=== PATIENT | female | born 1975 | race African-American/Black ===

== ENCOUNTER 2020-05-24 06:20 | Inpatient (IN) | payer OTHER ==
[2020-05-19 13:10] LABS: HEMATOCRIT 33.8 % (36.0-47.0); HEMOGLOBIN 11.2 g/dL (12.0-15.5); MEAN CORPUSCULAR HEMOGLOBIN 29.9 pg (27.0-33.4); MEAN CORPUSCULAR HGB CONC 33.3 g/dL (32.0-36.0); MEAN CORPUSCULAR VOLUME 90 fl (80-97); PLATELET COUNT 254 10^3/uL (150-450); RED BLOOD COUNT 3.76 10^6/uL (3.72-5.28); RED CELL DISTRIBUTION WIDTH 14.6 % (11.5-14.0); WHITE BLOOD COUNT 8.1 10^3/uL (4.0-10.5)
[2020-05-19 13:42] LABS: ANION GAP 10 (5-19); BLOOD UREA NITROGEN 12 mg/dL (7-20); CALCIUM 8.1 mg/dL (8.4-10.2); CARBON DIOXIDE 24 mmol/L (22-30); CHLORIDE 107 mmol/L (98-107); GLUCOSE 83 mg/dL (75-110); POTASSIUM 4.1 mmol/L (3.6-5.0)
--- NOTE | 2020-05-19 18:24 | EKG REPORT ---
SEVERITY:- OTHERWISE NORMAL ECG - SINUS RHYTHM BORDERLINE LEFT AXIS DEVIATION : Confirmed by: Jimmie Gloria 19-May-2020 18:24:07
[~2020-05-24 06:20] MED LIST: ACETAMINOPHEN 325 MG TABLET PO PRN; CEFOXITIN SODIUM 2 GM in DEXTROSE 5%-WATER 100 ML IV PRN; IBUPROFEN 800 MG in NORMAL SALINE 250 ML IV PRN; LACTATED RINGERS 1000 ML IV PRN; LIDOCAINE 0.5% INJ-PF (5 MG/ML) 50 ML SDV SUBCUT PRN; PREGABALIN 50 MG CAPSULE PO PRN
[2020-05-24] MEDS ORDERED: ACETAMINOPHEN 325 MG TABLET ONE ×2 (08:04→08:05)
[2020-05-24] MEDS ORDERED: PROPOFOL INJ 200 MG/20 ML VIAL IV ONE (08:40)
[2020-05-24] MEDS ORDERED: MIDAZOLAM 2 MG/2 ML INJ ONE (08:40)
[2020-05-24] MEDS ORDERED: FENTANYL CITRATE INJ/PF 250 MCG/5 ML AMPULE ONE (08:40)
[2020-05-24] MEDS ORDERED: BUPIVACAINE HCL 0.25 % INJ/PF (2.5 MG/1 ML) 30 ML VIAL ONE (08:41)
[2020-05-24] MEDS ORDERED: KETAMINE HCL INJ 500 MG/10 ML VIAL ONE (08:48)
[2020-05-24] MEDS ORDERED: FENTANYL CITRATE INJ/PF 100 MCG/2 ML AMPUL IV PRN ×3 (09:27)
[2020-05-24] MEDS ORDERED: DIPHENHYDRAMINE HCL 50 MG/ML VIAL IV PRN (09:27)
[2020-05-24] MEDS ORDERED: PROMETHAZINE HCL INJ 25 MG/1 ML VIAL IV PRN (09:27)
[2020-05-24] MEDS ORDERED: MORPHINE SULFATE 10 MG/ML INJ IV PRN ×2 (09:27→11:20)
[2020-05-24] MEDS ORDERED: MEPERIDINE HCL/PF INJ 25 MG/1 ML DISP.SYRIN IV PRN (09:27)
[2020-05-24] MEDS ORDERED: NORMAL SALINE 1000 ML 1,000 ML IV PRN (11:20)
--- NOTE | 2020-05-24 11:37 | Operative Report ---
Nonrecallable Operative Report DATE OF SURGERY: 05/24/20 PREOPERATIVE DIAGNOSIS: Tumor, right colon/cecum (unable to be removed via endoscopic methods) POSTOPERATIVE DIAGNOSIS: Same as above OPERATION: Laparoscopic right hemicolectomy. SURGEON: FAINA PARNELL 1ST BASEBALL GLOVE STUFFER: GUNJAN FERREIRA ANESTHESIA: GA TISSUE REMOVED OR ALTERED: Right hemicolectomy COMPLICATIONS: None apparent ESTIMATED BLOOD LOSS: minimal PROCEDURE: Drains/implants: None. Procedure in detail: After informed consent was obtained, the patient was brought to the operating room and laid in the supine position. The area of the abdomen was prepped and draped in a normal sterile fashion. A supraumbilical incision was then created with a 15 blade scalpel. Dissection was carried down through the subcutaneous tissues using sharp and blunt dissection. The cicatrix was identified, grasped with a Vipin clamp, and retracted upwards. The linea alba fascia was incised sharply, and the abdomen entered sharply. The balloon trocar was inserted, and pneumoperitoneum was achieved. The suprapubic 5 mm trocar was then placed under direct laparoscopic visualization. Another 12 mm left lower quadrant trocar was placed in similar fashion. Atraumatic graspers were placed through the ports. The cecum was identified. The cecum and appendix were retracted anteriorly. The previously described mass lesion was found to be at the appendiceal orifice on colonoscopy. The cecum was retracted anteriorly. The veil of Treivs was taken down. The cecum was removed using the [place] 60 stapler with a blue load. The appendix and cecum were removed through the 12 mm supraumbilical port. The specimen was examined on the back table. There was a large amount of adenomatous tissue present, extending to the resection margin. At this time it was felt necessary to perform right hemicolectomy to ensure the entirety of the tumor was removed. The cecum was grasped and retracted anteriorly. The ileocolic artery was easily identified. It was dissected free and divided using the [place] 60 stapler with a white load. Next a medial to lateral approach was taken. The mesentery of the right colon was elevated anteriorly, and from the retroperitoneum. This was done up to the mid transverse colon superiorly, and to the white line of Toldt laterally. The small bowel was then divided using the [place] 60 stapler at the terminal ileum. Next, attention was turned to medialization of the colon. The greater omentum was freed from the transverse colon up to the midportion. The proximal transverse colon was rotated medially and freed from the lateral and superior attachments. Once the colon was completely mobilized, attention was turned to creation of an anastomosis. The supraumbilical incision was extended approximately 4 to 5 cm. The Sal wound retractor was placed on the patient. The right colon and small bowel were then exteriorized. The colon was divided at the level of the transverse colon. Next, a [id number] stapled anastomosis was created using the [place] 60 stapler. The resulting defect was closed again with the [place] 60 stapler and a blue load. 2 crotch stitches of 3-0 Vicryl were used to secure the anastomosis. The anastomosis was tested, and found to be free of any leakage. The anastomosis was then returned to the abdomen. The camera was reinserted. The anastomosis laid in good position, without any kinking or twisting. Once this was confirmed, the 12 mm trocar was removed. The defect was closed using 0 Vicryl suture in [id number] fashion with the Shubham-Peter device. Next, the 5 mm trochars were removed. The Sal wound retractor was removed. The supraumbilical fascia was closed using #1 single strand PDS suture in simple running fashion. The overlying skin was then closed using skin mike. Dressings were placed, and the procedure was concluded. All sponge, instrument, and needle counts were correct x2. Condition: Stable. Gunjan Ferreira PA-C was scrubbed and present the entirety of the procedure. She assisted with all portions of the procedure including placement of the trochars, mobilization of the colon, removal of the colon, creation of the anastomosis, closure of the fascia, and closure of the skin.
[2020-05-24] MEDS: FENTANYL CITRATE INJ/PF 100 MCG/2 ML AMPUL ONE ×2 (11:39→11:50)
[2020-05-24] MEDS ORDERED: ROCURONIUM BROMIDE INJ 50 MG/5 ML VIAL IV ONE (14:18)
[2020-05-24] MEDS ORDERED: GLYCOPYRROLATE 1 MG/5 ML VIAL ONE (14:18)
[2020-05-24] MEDS ORDERED: LIDOCAINE 2% INJ-PF (20 MG/ML) 2 ML AMPUL ONE (14:18)
[2020-05-24] MEDS ORDERED: NEOSTIGMINE METHYLSULFATE 10 MG/10 ML VIAL ONE (14:18)
[2020-05-24] MEDS ORDERED: ONDANSETRON HCL INJ/PF 4 MG/2 ML SDV ONE (14:18)
[2020-05-24] MEDS: KETOROLAC TROMETHAMINE INJ/PF 30 MG/1 ML SDV IV SCH ×2 (15:44→23:16)
[2020-05-24] MEDS: ONDANSETRON HCL INJ/PF 4 MG/2 ML SDV IV PRN (16:00)
[2020-05-24] MEDS ORDERED: CEFOXITIN SODIUM 2 GM in DEXTROSE 5%-WATER 100 ML IV SCH (17:30)
[2020-05-24] MEDS: CEFOXITIN SODIUM 2 GM in DEXTROSE 5%-WATER 100 ML IV SCH (19:20)
[2020-05-24] MEDS: FAMOTIDINE INJ/PF 20 MG/2 ML SDV IV SCH (23:17)
[2020-05-25] MEDS: CEFOXITIN SODIUM 2 GM in DEXTROSE 5%-WATER 100 ML IV SCH (02:06)
[2020-05-25 05:58] LABS: ABSOLUTE EOSINOPHILS # (AUTO) 0.1 10^3/uL (0.0-0.6); ABSOLUTE LYMPHOCYTES (AUTO) 1.7 10^3/uL (0.5-4.7); ABSOLUTE MONOCYTES (AUTO) 0.4 10^3/uL (0.1-1.4); ABSOLUTE NEUT (AUTO) 8.2 10^3/uL (1.7-8.2); BASOPHILS % (AUTO) 0.3 % (0-2); EOSINOPHILS % (AUTO) 0.9 % (0-6); HEMATOCRIT 31.9 % (36.0-47.0); HEMOGLOBIN 10.8 g/dL (12.0-15.5); MEAN CORPUSCULAR HEMOGLOBIN 30.2 pg (27.0-33.4); MEAN CORPUSCULAR HGB CONC 33.7 g/dL (32.0-36.0); MEAN CORPUSCULAR VOLUME 90 fl (80-97); MONOCYTES % (AUTO) 4.2 % (3-13); PLATELET COUNT 297 10^3/uL (150-450); RED BLOOD COUNT 3.57 10^6/uL (3.72-5.28); RED CELL DISTRIBUTION WIDTH 14.8 % (11.5-14.0); SEGMENTED NEUTROPHILS % (AUTO) 78.6 % (42-78); TOTAL CELLS COUNTED % (AUTO) 100 %; WHITE BLOOD COUNT 10.5 10^3/uL (4.0-10.5)
[2020-05-25 06:22] LABS: ANION GAP 5 (5-19); BLOOD UREA NITROGEN 6 mg/dL (7-20); CALCIUM 8.2 mg/dL (8.4-10.2); CARBON DIOXIDE 25 mmol/L (22-30); CHLORIDE 111 mmol/L (98-107); GLUCOSE 97 mg/dL (75-110)
[2020-05-25] MEDS: KETOROLAC TROMETHAMINE INJ/PF 30 MG/1 ML SDV IV SCH ×3 (06:29→22:19)
[2020-05-25] MEDS: FAMOTIDINE INJ/PF 20 MG/2 ML SDV IV SCH ×2 (10:56→22:19)
[2020-05-25] MEDS: ENOXAPARIN SODIUM INJ 40 MG/0.4 ML DISP.SYRIN SUBCUT SCH (10:56)
--- NOTE | 2020-05-25 15:03 | PDOC PROGRESS REPORT ---
Subjective Progress Note for:: 05/25/20 Reason For Visit: D12.1 BENIGN NEOPLASM OF APPENDIX Physical Exam Vital Signs: Temp Pulse Resp BP Pulse Ox 98.0 F 89 16 96/56 L 100 05/25/20 11:51 05/25/20 11:51 05/25/20 11:51 05/25/20 11:51 05/25/20 11:51 Intake & Output 05/24/20 05/25/20 05/26/20 06:59 06:59 06:59 Intake Total 2258 388 Output Total 1775 875 Balance 483 -487 Weight 86.5 kg Results Laboratory Results: 05/25/20 05:05 05/25/20 05:05 05/25/20 05/25/20 05:05 05:05 WBC 10.5 RBC 3.57 L Hgb 10.8 L Hct 31.9 L MCV 90 MCH 30.2 MCHC 33.7 RDW 14.8 H Plt Count 297 Seg Neutrophils % 78.6 H Sodium 141.0 Potassium 4.0 Chloride 111 H Carbon Dioxide 25 Anion Gap 5 BUN 6 L Creatinine 0.81 Est GFR ( Amer) > 60 Glucose 97 Calcium 8.2 L Assessment & Plan - Diagnosis (1) Polyp of ascending colon Qualifiers: Colon polyp type: unspecified Qualified Code(s): K63.5 - Polyp of colon Is this a current diagnosis for this admission?: Yes - Time Anticipated Discharge Disposition: Home, Self Care Anticipated Discharge Timeframe: within 72 hours - Plan Summary Plan Summary: 44-year-old female status post laparoscopic right hemicolectomy for a large a sending colon polyp, that was unable to be removed via endoscopic methods. She is currently postoperative day #1. She is doing well today. She denies nausea or vomiting. She has not yet passing any flatus. Awaiting bowel function. Out of bed, ambulate. Discontinue Molina catheter. Decrease IV fluids.
[2020-05-25] MEDS: HYDROCODONE/ACETAMINOPHEN 10-325 MG TABLET PO PRN (22:19)
[2020-05-25] MEDS: NORMAL SALINE 1000 ML 1,000 ML IV PRN (23:53)
[2020-05-26] MEDS: HYDROCODONE/ACETAMINOPHEN 10-325 MG TABLET PO PRN ×2 (02:57→17:58)
[2020-05-26] MEDS: ONDANSETRON HCL INJ/PF 4 MG/2 ML SDV IV PRN ×3 (03:03→19:33)
[2020-05-26] MEDS: KETOROLAC TROMETHAMINE INJ/PF 30 MG/1 ML SDV IV SCH ×3 (05:40→21:23)
[2020-05-26] MEDS: FAMOTIDINE INJ/PF 20 MG/2 ML SDV IV SCH ×2 (09:28→21:23)
[2020-05-26] MEDS: ENOXAPARIN SODIUM INJ 40 MG/0.4 ML DISP.SYRIN SUBCUT SCH (09:28)
--- NOTE | 2020-05-26 12:21 | PDOC PROGRESS REPORT ---
Subjective Progress Note for:: 05/26/20 Subjective:: feels ok, passing flatus, jessica full liquids Reason For Visit: D12.1 BENIGN NEOPLASM OF APPENDIX Physical Exam Vital Signs: Temp Pulse Resp BP Pulse Ox 98.1 F 87 12 114/72 95 05/26/20 11:22 05/26/20 11:22 05/26/20 11:22 05/26/20 11:22 05/26/20 11:22 Intake & Output 05/25/20 05/26/20 05/27/20 06:59 06:59 06:59 Intake Total 2258 1516 Output Total 1775 2225 Balance 483 -709 Weight 86.5 kg 86.5 kg General appearance: PRESENT: no acute distress Head exam: PRESENT: normocephalic Eye exam: PRESENT: EOMI Ear exam: PRESENT: normal external ear exam Mouth exam: PRESENT: moist Neck exam: PRESENT: full ROM Respiratory exam: PRESENT: clear to auscultation brent Cardiovascular exam: PRESENT: RRR Pulses: PRESENT: normal radial pulses, normal femoral pulses Breast: PRESENT: Normal GI/Abdominal exam: PRESENT: soft, other - incisions clean, dry Rectal exam: PRESENT: deferred Extremities exam: PRESENT: full ROM Musculoskeletal exam: PRESENT: full ROM Neurological exam: PRESENT: alert, awake, oriented to person, oriented to place Psychiatric exam: PRESENT: appropriate affect Skin exam: PRESENT: dry Results Laboratory Results: 05/25/20 05:05 05/25/20 05:05 Assessment & Plan - Time Anticipated Discharge Disposition: Home, Self Care Anticipated Discharge Timeframe: within 24 hours - Plan Summary Plan Summary: pt doing well pod 2 from lap rt hemicolectomy jessica full liqluids will advance to reg diet today prob home tomorrowl
[2020-05-26] MEDS: NORMAL SALINE 1000 ML 1,000 ML IV PRN (19:33)
[2020-05-27] MEDS: HYDROCODONE/ACETAMINOPHEN 10-325 MG TABLET PO PRN ×3 (01:24→09:44)
[2020-05-27] MEDS: KETOROLAC TROMETHAMINE INJ/PF 30 MG/1 ML SDV IV SCH ×2 (05:35→13:22)
[2020-05-27] MEDS: ENOXAPARIN SODIUM INJ 40 MG/0.4 ML DISP.SYRIN SUBCUT SCH (09:44)
[2020-05-27] MEDS: FAMOTIDINE INJ/PF 20 MG/2 ML SDV IV SCH ×2 (09:44→09:47)
--- NOTE | 2020-05-27 15:50 | PDOC DISCHARGE SUMMARY ---
General - Admit/Disc Date/PCP Admission Date/Primary Care Provider: 05/24/20 06:20 HU ALVARES MD Discharge Date: 05/27/20 - Discharge Diagnosis Final Diagnosis: Polyp of the ascending colon, not amenable to endoscopic removal. - Assessment Summary: 4-year-old female admitted to hospital for large tumor of the cecum. The patient was found to have a large mass, and it was not amenable to endoscopic removal. She was therefore scheduled for surgery. The patient underwent laparoscopic right hemicolectomy. She was taken to the floor in stable condition. She is continue to do what she is reportedly tolerating a regular diet, passing flatus, ambulating in the hallways, and her pain is controlled with oral pain medications. It is felt that at this time she has reached [facility], and is fit for discharge. - Additional Information Resuscitation Status: Full Code Discharge Diet: As Tolerated Discharge Activity: Balance Activity w/Rest, No Lifting Over 10 Pounds, No Lifting/Push/Pulling Referrals: HU ALVARES MD [Primary Care Provider] - Prescriptions: Hydrocodone/Acetaminophen [[place] 10-325 mg Tablet] 1 tab PO Q6HP PRN #20 tablet PRN Reason: Home Medications: Amitriptyline HCl [Elavil 75 mg Tablet] 75 mg PO DAILY 05/19/20 Gabapentin 300 mg PO DAILY 05/19/20 Trazodone HCl 150 mg PO QHS 05/19/20 Hydrocodone/Acetaminophen [[place] 10-325 mg Tablet] 1 tab PO Q6HP PRN #20 tablet 05/27/20 Additional Information: Discharge home. Diet as tolerated. Activity: No lifting greater than 10 pounds x 6 weeks after surgery. Follow-up with me in 7 to 10 days. [place] 10/325 mg p.o. every 6 hours PRN for pain. Okay to shower. No tub baths or swimming pools x2 weeks. History of Present Illiness History of Present Illness: HECTOR BAXTER is a 44 year old female Physical Exam Vital Signs: Temp Pulse Resp BP Pulse Ox 98.2 F 102 H 26 H 107/61 99 05/27/20 08:33 05/27/20 08:11 05/27/20 08:11 05/27/20 08:11 05/27/20 08:11 Intake & Output 05/26/20 05/27/2020 06:59 06:59 06:59 Intake Total 3412 8103 Output Total 2220 500 Balance -709 1043 Weight 86.5 kg 86.4 kg Results Laboratory Results: WBC 10.5 10^3/uL (4.0-10.5) 05/25/20 05:05 RBC 3.57 10^6/uL (3.72-5.28) L 05/25/20 05:05 Hgb 10.8 g/dL (12.0-15.5) L 05/25/20 05:05 Hct 31.9 % (36.0-47.0) L 05/25/20 05:05 MCV 90 fl (80-97) 05/25/20 05:05 MCH 30.2 pg (27.0-33.4) 05/25/20 05:05 MCHC 33.7 g/dL (32.0-36.0) 05/25/20 05:05 RDW 14.8 % (11.5-14.0) H 05/25/20 05:05 Plt Count 297 10^3/uL (150-450) 05/25/20 05:05 Lymph % (Auto) 16.0 % (13-45) 05/25/20 05:05 [place] % (Auto) 4.2 % (3-13) 05/25/20 05:05 Eos % (Auto) 0.9 % (0-6) 05/25/20 05:05 Baso % (Auto) 0.3 % (0-2) 05/25/20 05:05 Absolute Neuts (auto) 8.2 10^3/uL (1.7-8.2) 05/25/20 05:05 Absolute Lymphs (auto) 1.7 10^3/uL (0.5-4.7) 05/25/20 05:05 Absolute Monos (auto) 0.4 10^3/uL (0.1-1.4) 05/25/20 05:05 Absolute Eos (auto) 0.1 10^3/uL (0.0-0.6) 05/25/20 05:05 Absolute Basos (auto) 0.0 10^3/uL (0.0-0.2) 05/25/20 05:05 Seg Neutrophils % 78.6 % (42-78) H 05/25/20 05:05 Sodium 141.0 mmol/L (137-145) 05/25/20 05:05 Potassium 4.0 mmol/L (3.6-5.0) 05/25/20 05:05 Chloride 111 mmol/L (98-107) H 05/25/20 05:05 Carbon Dioxide 25 mmol/L (22-30) 05/25/20 05:05 Anion Gap 5 (5-19) 05/25/20 05:05 BUN 6 mg/dL (7-20) L 05/25/20 05:05 Creatinine 0.81 mg/dL (0.52-1.25) 05/25/20 05:05 Est GFR ( Amer) > 60 (>60) 05/25/20 05:05 Est GFR (MDRD) Non-Af > 60 (>60) 05/25/20 05:05 Glucose 97 mg/dL (75-110) 05/25/20 05:05 Calcium 8.2 mg/dL (8.4-10.2) L 05/25/20 05:05 Urine HCG, Qual NEGATIVE (NEGATIVE) 05/24/20 07:13 COVID-19 Source See comment 05/19/20 11:30 COVID-19 (MELINA) Not Detected (Not Detect) 05/19/20 11:30 Blood Type O NEGATIVE 05/24/20 07:17 Antibody Screen NEGATIVE 05/24/20 07:17
[2020-05-27 16:03] VITALS: BP 114/72
--- NOTE | 2020-06-01 20:49 | Progress Note ---
Provider Note Provider Note: Response to query: The patient has been diagnosed with moderately differentiated adenocarcinoma of the colon with the pathology. This was not identified prior to surgery. Previous colonic biopsy showed an adenomatous lesion. Adenocarcinoma will was only recognized after surgery, and the pathology report was made final. This occurred after the patient's discharge.
== END 2020-05-27 17:08 | disposition home or self-care (01) | DRG 331 ==
LOC: INOR 06:20 → 4S 12:41
PROVIDERS: ADMIT Surgery; ATTEND Surgery
PROC: 0DTF4ZZ Resection of Right Large Intestine, Percutaneous Endoscopic Approach (ICD-10-PCS; principal; 2020-05-24 08:45)
DX: C18.0 Malignant neoplasm of cecum (principal); F32.9 Major depressive disorder, single episode, unspecified; G47.00 Insomnia, unspecified; F43.10 Post-traumatic stress disorder, unspecified; Z82.49 Family history of ischemic heart disease and other diseases of the circulatory system; Z79.899 Other long term (current) drug therapy
CPT/HCPCS: 36415; 790; 80048; 81025; 85025; 85027; 86850; 86900; 86901; 87635; 88307; 93005; 93010; 94799; C1758; C9803; J0694; J1650; J1741; J1885; J2250; J2405; J2704; J2710; J3010; J3490; J7030; J7050; J7060; S0028

== ENCOUNTER 2020-06-03 20:29 | Inpatient (IN) | payer OTHER ==
--- NOTE | 2020-06-03 21:02 | ER Document Report ---
ED Medical Screen (RME) - General Chief Complaint: Chest Pain Stated Complaint: CHEST PAIN Time Seen by Provider: 06/03/20 20:52 Primary Care Provider: HU ALVARES MD [Primary Care Provider] - Follow up as needed Mode of Arrival: Wheelchair Information source: Patient Notes: 44-year-old female presents to ED for complaint of vomiting from 6 PM to 8 PM tonight. She states she cannot hold any food or fluids down. She states on May 24 she had a surgery at this hospital. She states she was discharged on May 28. She states she had a mass on her colon and had her small intestines and attached to her large intestines. She states her appendix was removed. She states that this afternoon and evening she has had trouble breathing and nausea vomiting feels like all of her food is balled up in her stomach. She states it feels like she needs to burp or throw up every time she eats or drinks. She is alert oriented respirations regular nonlabored at this time. Lungs clear to auscultation. I have greeted and performed a rapid initial assessment of this patient. A comprehensive ED assessment and evaluation of the patient, analysis of test results and completion of medical decision making process will be conducted by an additional ED providers. - Related Data Allergies/Adverse Reactions: No Known Allergies Allergy (Unverified 05/24/20 08:16) Past Medical History Renal/ Medical History: Reports: Hx Ovarian Cysts. Denies: Hx Pelvic Inflammatory Disease Malignancy Medical History: Reports: Hx Ovarian Cancer - ?. Denies: Hx Breast Cancer, Hx Cervical Cancer, Hx Leukemia GI Medical History: Reports: Hx Gastroesophageal Reflux Disease. Denies: Hx Crohn's Disease, Hx Hiatal Hernia, Hx Irritable Bowel, Hx Liver Failure, Hx Pancreatitis, Hx Ulcer Musculoskeltal Medical History: Reports Hx Arthritis, Denies Hx Fibromyalgia, Denies Hx Muscular Dystrophy Psychiatric Medical History: Denies: Hx Depression Traumatic Medical History: Denies: Hx Fractures Infectious Medical History: Denies: Hx HIV Past Surgical History: Reports: Hx Tubal Ligation. Denies: Hx Appendectomy, Hx Bowel Surgery, Hx Section, Hx Cholecystectomy, Hx Colostomy, Hx Coronary Artery Bypass Graft, Hx Gastric Bypass Surgery, Hx Herniorrhaphy, Hx Hysterectomy, Hx Mastectomy, Hx Pacemaker, Hx Tonsillectomy Physical Exam - Vital signs Vitals: Temp Pulse Resp BP Pulse Ox 99.0 F 97 22 H 113/72 96 06/03/20 20:49 06/03/20 20:49 06/03/20 20:49 06/03/20 20:49 06/03/20 20:49 Course - Vital Signs Vital signs: Temp Pulse Resp BP Pulse Ox 99.0 F 97 22 H 113/72 96 06/03/20 20:49 06/03/20 20:49 06/03/20 20:49 06/03/20 20:49 06/03/20 20:49 Doctor's Discharge - Discharge Referrals: HU ALVARES MD [Primary Care Provider] - Follow up as needed
[2020-06-03] MEDS ORDERED: ONDANSETRON 4 MG TAB.RAPDIS PO ONE (21:05)
--- NOTE | 2020-06-03 21:52 | RADIOLOGY REPORT (SQ) ---
CHEST X-RAY 2 view on 06/03/2020 at 9:12 PM CLINICAL INDICATION: Chest pain, shortness of breath, vomiting, postop COMPARISON: None FINDINGS: There are mild bibasilar opacities consistent with likely mild bibasilar atelectasis and trace pleural effusions. The lungs are otherwise clear. Cardiac, hilar and mediastinal contours are within normal limits. Pulmonary vascularity is within normal limits. There are multiple air-fluid levels with dilated loops of bowel in the upper abdomen that may represent postoperative ileus but reportedly the patient's surgery was almost 2 weeks ago and this is therefore worrisome for obstruction. Would recommend follow-up CT of the abdomen and pelvis to better evaluate. IMPRESSION: 1. Mild bibasilar opacities likely representing atelectasis and trace pleural effusions. 2. Multiple air-fluid levels with dilated loops of small bowel that could represent postoperative ileus but if the patient's surgery was almost 2 weeks ago then this is more suggestive of developing obstruction. Would recommend clinical correlation and consider follow-up CT of the abdomen and pelvis to better evaluate.
[2020-06-03 22:01] LABS: ALBUMIN 3.7 g/dL (3.5-5.0); ALKALINE PHOSPHATASE 91 U/L (38-126); ANION GAP 12 (5-19); ASPARTATE AMINO TRANSFERASE 44 U/L (14-36); BILIRUBIN,DIRECT 0.5 mg/dL (0.0-0.4); BILIRUBIN,TOTAL 0.6 mg/dL (0.2-1.3); BLOOD UREA NITROGEN 17 mg/dL (7-20); CALCIUM 8.9 mg/dL (8.4-10.2); CARBON DIOXIDE 28 mmol/L (22-30); CHLORIDE 97 mmol/L (98-107); CREATINE KINASE 60 U/L (30-135); GLUCOSE 99 mg/dL (75-110); NEONATAL BILIRUBIN RESULT 0.2 mg/dL (0.1-1.1); POTASSIUM 3.7 mmol/L (3.6-5.0)
--- NOTE | 2020-06-03 22:19 | ER Document Report ---
ED GI/ - General Chief Complaint: Nausea/Vomiting Stated Complaint: CHEST PAIN Time Seen by Provider: 06/03/20 20:52 Mode of Arrival: Wheelchair Notes: Patient is a 44-year-old female who presents the emergency department with a chief complaint of nausea, vomiting, and abdominal pain. Patient had a right hemicolectomy on May 24 and had a tumor removed. The tumor resulted as adenocarcinoma. Patient states that her symptoms started tonight at 1800. States that she had some loose stool, but denies any diarrhea. Denies any hematemesis. - Related Data Allergies/Adverse Reactions: No Known Allergies Allergy (Unverified 05/24/20 08:16) Past Medical History - General Information source: Patient - Social History Smoking Status: Never Smoker Chew tobacco use (# tins/day): No Frequency of alcohol use: None Drug Abuse: None Family History: Reviewed & Not Pertinent Patient has homicidal ideation: No Renal/ Medical History: Reports: Hx Ovarian Cysts. Denies: Hx Pelvic Inflammatory Disease Malignancy Medical History: Reports: Hx Ovarian Cancer - ?. Denies: Hx Breast Cancer, Hx Cervical Cancer, Hx Leukemia GI Medical History: Reports: Hx Gastroesophageal Reflux Disease. Denies: Hx Crohn's Disease, Hx Hiatal Hernia, Hx Irritable Bowel, Hx Liver Failure, Hx Pancreatitis, Hx Ulcer Musculoskeletal Medical History: Reports Hx Arthritis, Denies Hx Fibromyalgia, Denies Hx Muscular Dystrophy Psychiatric Medical History: Denies: Hx Depression Traumatic Medical History: Denies: Hx Fractures Infectious Medical History: Denies: Hx HIV Past Surgical History: Reports: Hx Tubal Ligation. Denies: Hx Appendectomy, Hx Bowel Surgery, Hx Section, Hx Cholecystectomy, Hx Colostomy, Hx Coronary Artery Bypass Graft, Hx Gastric Bypass Surgery, Hx Herniorrhaphy, Hx Hysterectomy, Hx Mastectomy, Hx Pacemaker, Hx Tonsillectomy Review of Systems - Review of Systems Notes: REVIEW OF SYSTEMS: CONSTITUTIONAL : Denies recent illness. Denies recent unintentional weight loss. Denies fever, chills, or sweats. EENT: Denies eye, ear, throat, or mouth pain, discharge, or symptoms. Denies nasal or sinus congestion. CARDIOVASCULAR: Denies chest pain. RESPIRATORY: Denies shortness of breath, cough, congestion, difficulty breathing, or wheezing. GASTROINTESTINAL: See HPI. GENITOURINARY: Denies difficulty urinating, burning, blood in urine, urgency or frequency. MUSCULOSKELETAL: Denies neck and back pain. Denies joint pain or swelling. SKIN: Denies rash, itchiness, or lesions HEMATOLOGIC : Denies easy bruising or bleeding. LYMPHATIC: Denies swollen, painful, enlarged glands. NEUROLOGICAL: Denies no numbness or tingling denies weakness. Denies headache. Denies altered mental status. Denies alteration in speech. PSYCHIATRIC: Denies stress, anxiety, alteration in sleep patterns, or depression. All other systems reviewed and negative. Physical Exam - Vital signs Vitals: Temp Pulse Resp BP Pulse Ox 99.0 F 97 22 H 113/72 96 06/03/20 20:49 10 20:49 10 20:49 06/03/20 20:49 06/03/20 20:49 - Notes Notes: PHYSICAL EXAMINATION: GENERAL: Appears well, healthy, well-nourished, no acute distress. HEAD: Normocephalic, atraumatic. EYES: PERRL, conjunctiva normal, all extraocular movements intact, sclera nonicteric ENT: Moist mucous membranes. NECK: Supple, no noticeable swelling, redness, rash. Normal range of motion. LUNGS: Equal breath sounds bilaterally and clear to auscultation. No wheezes rales or rhonchi. CARDIOVASCULAR: S1-S2, regular rate, regular rhythm. Radial pulses 2+, normal. ABDOMEN: Normoactive bowel sounds. Soft, tender mid upper abdomen, no rebound tenderness, and no masses palpated. Zenia noted to mid abdomen. EXTREMITIES: Normal strength and range of motion, no pitting or edema. No cyanosis. NEUROLOGICAL: Moves all extremities upon command. Strength 5/5 in all extremities. PSYCH: Normal mood, normal affect. SKIN: Warm, dry. No rash, lesions, ulcerations noted. Normal skin turgor. Course - Re-evaluation Re-evalutation: 06/03/20 23:17 Hematology shows a leukocytosis of 11,900. Hemoglobin 10.9, which is her normal from when she was here in the hospital on May 25. Lipase is elevated, most likely due to her recent surgery. AST and ALT are also slightly elevated. Sodium is 136. Patient received a liter of fluids. Troponin is negative. Spoke with Dr. Hahn in regards to this patient's case. We will send the patient for CT of the abdomen pelvis with IV and oral contrast. 06/04/20 03:08 No pulmonary emboli on CTA of the chest. There is a bowel obstruction noted on CT of the abdomen pelvis. I spoke with Dr. Hahn again. The patient will be admitted to the surgical floor. He would like an NG tube placed. - Vital Signs Vital signs: Temp Pulse Resp BP Pulse Ox 98.5 F 86 16 112/66 93 06/04/20 11:30 06/04/20 11:30 06/04/20 11:30 06/04/20 11:30 06/04/20 11:30 - Laboratory Result Diagrams: 06/03/20 22:20 06/03/20 21:39 Laboratory results interpreted by me: 06/03/20 06/03/20 06/03/20 21:39 21:39 22:20 WBC 11.5 H Hgb 10.9 L Hct 32.2 L RDW 15.2 H Plt Count 594 H Band Neutrophils % 2 L Sodium 136.8 L Chloride 97 L Direct Bilirubin 0.5 H AST 44 H ALT 41 H Lipase 467.3 H Discharge - Discharge Clinical Impression: Abdominal pain Qualifiers: Abdominal location: generalized Qualified Code(s): R10.84 - Generalized abdominal pain Bowel obstruction Qualifiers: Intestinal obstruction type: unspecified Intestinal obstruction extent: uns pecified extent Qualified Code(s): K56.609 - Unspecified intestinal obstruction, unspecified as to partial versus complete obstruction Condition: Stable Disposition: ADMITTED INPATIENT Admitting Provider: Dr. Hahn Unit Admitted: Surgical Floor
[2020-06-03 22:29] LABS: HEMATOCRIT 32.2 % (36.0-47.0); HEMOGLOBIN 10.9 g/dL (12.0-15.5); MEAN CORPUSCULAR HEMOGLOBIN 29.3 pg (27.0-33.4); MEAN CORPUSCULAR HGB CONC 33.9 g/dL (32.0-36.0); PLATELET COUNT 594 10^3/uL (150-450); RED BLOOD COUNT 3.73 10^6/uL (3.72-5.28); RED CELL DISTRIBUTION WIDTH 15.2 % (11.5-14.0); WHITE BLOOD COUNT 11.5 10^3/uL (4.0-10.5)
[2020-06-03 22:35] LABS: MEAN CORPUSCULAR VOLUME 86 fl (80-97)
--- NOTE | 2020-06-03 22:48 | EKG REPORT ---
SEVERITY:- BORDERLINE ECG - SINUS RHYTHM NONSPECIFIC ST-T CHANGES- INFERIOR LEADS : Confirmed by: Ayden Melgoza MD 03-Jun-2020 22:47:56
[2020-06-03 22:59] LABS: ABSOLUTE LYMPHOCYTES# (MANUAL) 2.4 10^3/uL (0.5-4.7); ABSOLUTE MONOCYTES # (MANUAL) 0.9 10^3/uL (0.1-1.4); BAND NEUTROPHILS % (MANUAL) 2 % (3-5); BASOPHILS % (MANUAL) 0 % (0-2); EOSINOPHILS % (MANUAL) 0 % (0-6); LYMPHOCYTES % (MANUAL) 21 % (13-45); METAMYELOCYTES % (MANUAL) 1 % (0-1); MONOCYTES % (MANUAL) 8 % (3-13); SEGMENTED NEUTROPHILS % (MAN) 68 % (42-78); TOTAL CELLS COUNTED 100
[2020-06-03 23:00] LABS: ANISOCYTOSIS SLIGHT; OVALOCYTES SLIGHT; POIKILOCYTOSIS SLIGHT
[2020-06-03 23:01] LABS: PLATELET COMMENT INCREASED
[2020-06-03] MEDS ORDERED: NORMAL SALINE 1000 ML 1,000 ML IV ONE (23:04)
[2020-06-03] MEDS ORDERED: MORPHINE SULFATE 10 MG/ML INJ IV ONE (23:10)
[2020-06-03] MEDS ORDERED: ONDANSETRON HCL INJ/PF 4 MG/2 ML SDV IV ONE (23:19)
--- NOTE | 2020-06-04 02:44 | RADIOLOGY REPORT (SQ) ---
EXAM DESCRIPTION: CT CHEST ANGIOGRAPHY WITHOUT THEN WITH IV CONTRAST, CT ABDOMEN PELVIS WITH IV CONTRAST COMPLETED DATE/TME: 06/03/2020 23:45 (accession [id number]), 06/03/2020 00:00 (accession [id number]) CLINICAL HISTORY: shortness of breath; vomiting. Abdominal pain. COMPARISON: None Available. TECHNIQUE: CTA of the chest obtained following IV administration of 89 mL of Omnipaque 350. 3-D/MIP reformatted images available. CT of the abdomen and pelvis was then performed in the portal venous phase oral contrast administered. FINDINGS: Chest: Pulmonary arteries: Contrast bolus is adequate.No filling defects identified in the pulmonary arteries to suggest pulmonary embolus. Thyroid:No abnormalities of the visualized thyroid. Great Vessels:Great vessels have normal anatomic configuration. Thoracic Aorta:No abnormalities of the thoracic aorta identified. Heart:No cardiomegaly, significant pericardial effusion, or coronary artery atherosclerosis Lymph Nodes:No enlarged mediastinal lymph nodes identified. Esophagus:No abnormalities of the esophagus identified. Other:No additional findings. Lungs: Minimal bibasilar atelectasis. Pleura: Small left pleural effusion. No pneumothorax. Trachea/Airways:No abnormalities of the visualized trachea or airways. Abdomen: Liver: The liver has normal size and density. No intrahepatic mass or biliary dilatation. Gallbladder: No calcified gallstones. Spleen, Pancreas, and Adrenal Glands: The spleen, pancreas, and adrenal glands are unremarkable. Kidneys: The kidneys have normal size without evidence of solid mass or hydronephrosis. Vasculature: The aorta and IVC have normal caliber and position. The portal vein is patent. The proximal visceral and renal arteries are patent. Stomach: The stomach and duodenum have normal course. Other: No free intraperitoneal air. Small amount of free fluid. Postoperative change in the left abdominal subcutaneous soft tissues with adjacent ill-defined fluid possibly representing hematoma or seroma. Small foci of air. Pelvis: Bladder: Urinary bladder is unremarkable. Bowel: Significantly dilated loops of small bowel with transition point immediately proximal to the enterocolic anastomosis in the right upper abdomen. Colon is decompressed. Appendix: Absent. Pelvis: IUD in the uterus. Bones: No destructive bone lesions identified. IMPRESSION: 1. Significantly dilated loops of small bowel throughout the abdomen with transition transition point immediately proximal to the enterocolic anastomosis in the right upper abdomen. The colon is decompressed. Findings suggest high-grade small bowel obstruction. 2. Small amount of free fluid in abdomen. 3. Mild bibasilar atelectasis and small left pleural effusion. 4. No pulmonary embolus. This exam was performed according to our departmental dose-optimization program, which includes automated exposure control, adjustment of the mA and/or kV according to patient size and/or use of iterative reconstruction technique.
[2020-06-04] MEDS ORDERED: PHARMACY COMMUNICATION ORDER MC NR (03:15)
[2020-06-04] MEDS: ONDANSETRON HCL INJ/PF 4 MG/2 ML SDV IV PRN ×2 (03:33→19:58)
[2020-06-04] MEDS: MORPHINE SULFATE 10 MG/ML INJ IV PRN (03:33)
[2020-06-04] MEDS: DEXTROSE 5%-LACTATED RINGERS 1,000 ML IV PRN ×2 (03:34→12:47)
--- NOTE | 2020-06-04 04:49 | RADIOLOGY REPORT (SQ) ---
CLINICAL HISTORY: Check Placement of NG Tube COMPARISON: None. TECHNIQUE: XR ABDOMEN 1 VIEW (KUB) 06/04/2020 3:08 AM CDT FINDINGS: Bowel gas pattern is nonspecific. There are no abnormal radiopaque foreign bodies or abnormal calcifications. Osseous structures are grossly unremarkable. NG tube tip is in the stomach. There is mild bibasilar airspace disease. IMPRESSION: NG tube tip in the stomach.
[2020-06-04] MEDS: ENOXAPARIN SODIUM INJ 40 MG/0.4 ML DISP.SYRIN SUBCUT SCH (09:24)
[2020-06-04] MEDS ORDERED: ROCURONIUM BROMIDE INJ 50 MG/5 ML VIAL IV ONE (10:50)
[2020-06-04] MEDS ORDERED: DEXAMETHASONE SOD PHOSPHATE INJ 4 MG/1 ML VIAL ONE (10:50)
[2020-06-04] MEDS ORDERED: SUCCINYLCHOLINE CHLORIDE INJ 200 MG/10 ML VIAL ONE (10:50)
[2020-06-04] MEDS ORDERED: LIDOCAINE 2% INJ-PF (20 MG/ML) 2 ML AMPUL ONE (10:50)
[2020-06-04] MEDS ORDERED: NEOSTIGMINE METHYLSULFATE 10 MG/10 ML VIAL ONE (10:50)
[2020-06-04] MEDS ORDERED: GLYCOPYRROLATE 1 MG/5 ML VIAL ONE (10:50)
[2020-06-04] MEDS ORDERED: ONDANSETRON HCL INJ/PF 4 MG/2 ML SDV ONE (10:50)
[2020-06-04] MEDS ORDERED: PHENYLEPHRINE HCL INJ/PF 10 MG/1 ML SDV ONE (10:50)
--- NOTE | 2020-06-04 11:14 | PDOC H&P ---
History of Present Illness Admission Date/PCP: 06/04/20 03:55 HU ALVARES MD Patient complains of: one day h/o nausea and vomiting History of Present Illness: HECTOR BAXTER is a 44 year old female who is approximately 2 weeks status post laparoscopic right hemicolectomy. At home, she has been tolerating a soft mechanical diet. Yesterday, she began to feel bloated and nauseated. There was no inciting event. Yesterday she had 2 small liquid bowel movements. After the bloating and nausea started, they progressed and worsened. She then began to experience obstipation, nausea, and vomiting. She presented to the emergency department, where a CT scan was ordered. She denies significant abdominal discomfort, fevers, chills, hematochezia, hematemesis, chest pain, shortness of breath. She has been somewhat weak since surgery, but denies orthostasis or fainting. Past Medical History Malignancy Medical History: Reports: Ovarian Cancer - ? Denies: Breast Cancer, Cervical Cancer, Leukemia GI Medical History: Reports: Gastroesophageal Reflux Disease Denies: Crohn's Disease, Hiatal Hernia Musculoskeltal Medical History: Reports: Arthritis Denies: Fibromyalgia Psychiatric Medical History: Denies: Depression Hematology: Reports: Anemia Denies: Hemophilia, Sickle Cell Disease Infectious Medical History: Denies: HIV Past Surgical History Past Surgical History: Reports: Tubal Ligation, Other - Laparoscopic right hemicolectomy approximately 2 weeks ago. Denies: Amputation, Appendectomy, Section, Cholecystectomy, Colostomy, Coronary Artery Bypass Graft, Gastric Bypass Surgery, Herniorrhaphy, Hysterectomy, Mastectomy, Pacemaker, Tonsillectomy Social History Smoking Status: Never Smoker Electronic Cigarette use?: No Frequency of Alcohol Use: None Hx Recreational Drug Use: No Drugs: None Hx Prescription Drug Abuse: No Family History Parental Family History Reviewed: Yes Children Family History Reviewed: Yes Sibling(s) Family History Reviewed.: Yes Medication/Allergy Home Medications: Amitriptyline HCl [Elavil 75 mg Tablet] 75 mg PO DAILY 05/19/20 Gabapentin 300 mg PO DAILY 05/19/20 Trazodone HCl 150 mg PO QHS 05/19/20 Hydrocodone/Acetaminophen [Morrow 10-325 mg Tablet] 1 tab PO Q6HP PRN #20 tablet 05/27/20 Allergies/Adverse Reactions: No Known Allergies Allergy (Unverified 05/24/20 08:16) Review of Systems Constitutional: PRESENT: weakness. ABSENT: anorexia, chills, fatigue, fever(s), headache(s) Eyes: ABSENT: visual disturbances Ears: ABSENT: hearing changes Nose, Mouth, and Throat: ABSENT: sore throat Cardiovascular: ABSENT: chest pain Respiratory: ABSENT: cough, dyspnea Gastrointestinal: PRESENT: bloating, nausea, vomiting. ABSENT: abdominal pain, hematemesis, hematochezia, melena Genitourinary: ABSENT: dysuria Musculoskeletal: ABSENT: back pain Integumentary: ABSENT: pruritus, rash Neurological: ABSENT: confusion, convulsions, dizziness Psychiatric: ABSENT: anxiety, depression Endocrine: ABSENT: cold intolerance, heat intolerance Hematologic/Lymphatic: ABSENT: easy bleeding, easy bruising Physical Exam Vital Signs: Temp Pulse Resp BP Pulse Ox 98.4 F 87 12 125/82 95 06/04/20 07:33 06/04/20 07:33 06/04/20 07:33 06/04/20 07:33 06/04/20 07:33 Intake & Output 06/03/20 06/04/20 06/05/20 06:59 06:59 06:59 Intake Total 1156 Output Total 450 Balance 706 Weight 76.8 kg General appearance: PRESENT: no acute distress, cooperative Head exam: PRESENT: atraumatic, normocephalic Eye exam: PRESENT: EOMI, PERRLA. ABSENT: scleral icterus Mouth exam: PRESENT: moist, neck supple Neck exam: ABSENT: meningismus, tenderness, thyromegaly, tracheal deviation Respiratory exam: PRESENT: unlabored. ABSENT: chest wall tenderness, tachypnea, wheezes Cardiovascular exam: ABSENT: tachycardia Pulses: PRESENT: normal radial pulses GI/Abdominal exam: PRESENT: distended - Mild, soft, tenderness - Appropriate tenderness at incision sites. No diffuse abdominal tenderness present.. ABSENT: rebound, rigid Rectal exam: PRESENT: deferred Extremities exam: ABSENT: clubbing Musculoskeletal exam: ABSENT: deformity Neurological exam: PRESENT: alert, awake, oriented to person, oriented to place, oriented to time, oriented to situation, CN II-XII grossly intact Psychiatric exam: ABSENT: agitated, anxious, depressed Focused psych exam: ABSENT: delusional Skin exam: ABSENT: cyanosis, erythema, jaundice Results Laboratory Results: 06/03/20 22:20 06/03/20 21:39 06/03/20 06/03/20 06/03/20 21:39 21:39 21:39 WBC Cancelled RBC Cancelled Hgb Cancelled Hct Cancelled MCV Cancelled MCH Cancelled MCHC Cancelled RDW Cancelled Plt Count Cancelled Seg Neutrophils % Cancelled Sodium 136.8 L Potassium 3.7 Chloride 97 L Carbon Dioxide 28 Anion Gap 12 BUN 17 Creatinine 0.82 Est GFR ( Amer) > 60 Glucose 99 Calcium 8.9 Magnesium 2.0 Total Bilirubin 0.6 AST 44 H Alkaline Phosphatase 91 Total Protein 7.0 Albumin 3.7 Lipase 467.3 H 06/03/20 22:20 WBC 11.5 H RBC 3.73 Hgb 10.9 L Hct 32.2 L MCV 86 D MCH 29.3 MCHC 33.9 RDW 15.2 H Plt Count 594 H Seg Neutrophils % Not Reportable Sodium Potassium Chloride Carbon Dioxide Anion Gap BUN Creatinine Est GFR ( Amer) Glucose Calcium Magnesium Total Bilirubin AST Alkaline Phosphatase Total Protein Albumin Lipase 06/03/20 06/03/20 21:39 21:39 Creatine Kinase 60 Troponin I < 0.012 Impressions: Abdomen/Pelvis CT 06/03/20 00:00 IMPRESSION: 1. Significantly dilated loops of small bowel throughout the abdomen with transition transition point immediately proximal to the enterocolic anastomosis in the right upper abdomen. The colon is decompressed. Findings suggest high-grade small bowel obstruction. 2. Small amount of free fluid in abdomen. 3. Mild bibasilar atelectasis and small left pleural effusion. 4. No pulmonary embolus. This exam was performed according to our departmental dose-optimization program, which includes automated exposure control, adjustment of the mA and/or kV according to patient size and/or use of iterative reconstruction technique. Chest X-Ray 06/03/20 20:57 IMPRESSION: 1. Mild bibasilar opacities likely representing atelectasis and trace pleural effusions. 2. Multiple air-fluid levels with dilated loops of small bowel that could represent postoperative ileus but if the patient's surgery was almost 2 weeks ago then this is more suggestive of developing obstruction. Would recommend clinical correlation and consider follow-up CT of the abdomen and pelvis to better evaluate. Chest/Abdomen CTA 06/03/20 23:45 IMPRESSION: 1. Significantly dilated loops of small bowel throughout the abdomen with transition transition point immediately proximal to the enterocolic anastomosis in the right upper abdomen. The colon is decompressed. Findings suggest high-grade small bowel obstruction. 2. Small amount of free fluid in abdomen. 3. Mild bibasilar atelectasis and small left pleural effusion. 4. No pulmonary embolus. This exam was performed according to our departmental dose-optimization program, which includes automated exposure control, adjustment of the mA and/or kV according to patient size and/or use of iterative reconstruction technique. KUB X-Ray 06/04/20 03:08 IMPRESSION: NG tube tip in the stomach. Assessment & Plan - Diagnosis (1) Small bowel obstruction due to postoperative adhesions Is this a current diagnosis for this admission?: Yes - Time Anticipated Discharge Disposition: Home, Self Care Anticipated Discharge Timeframe: unknown - Plan Summary Plan Summary: 44-year-old female who is approximately 2 weeks status post laparoscopic right hemicolectomy. The patient reports a 1 day history of bloating, nausea, vomiting, and obstipation. Prior to this episode, she was eating and stooling without difficulty. I have reviewed the patient's CT scan images and report. There is no evidence for anastomotic leak. The patient has possible kinking/twisting of the small bowel, proximal to the anastomosis. This has caused a complete/near-complete small bowel obstruction. Plan to leave her NG tube in place for decompression. Repeat x-rays tomorrow. Hopefully, the patient's symptoms will subside. If they do not subside over the next 48 to 72 hours, she may require revision of her anastomosis. This has been discussed with the patient. She is in agreement with the treatment plan. Lovenox for DVT prophylaxis. No indication for antibiotics at this time. Continue NG tube and IV fluids for now.
[2020-06-04] MEDS: POTASSI CL 20 MEQ/D5-1/2NS 1L 1000 ML IV PRN (19:58)
[2020-06-05] MEDS: POTASSI CL 20 MEQ/D5-1/2NS 1L 1000 ML IV PRN (04:27)
[2020-06-05 05:31] LABS: ABSOLUTE LYMPHOCYTES (AUTO) 1.5 10^3/uL (0.5-4.7); ABSOLUTE MONOCYTES (AUTO) 0.7 10^3/uL (0.1-1.4); ABSOLUTE NEUT (AUTO) 8.3 10^3/uL (1.7-8.2); BASOPHILS % (AUTO) 0.1 % (0-2); EOSINOPHILS % (AUTO) 0.4 % (0-6); HEMATOCRIT 32.8 % (36.0-47.0); HEMOGLOBIN 11.4 g/dL (12.0-15.5); LYMPHOCYTES % (AUTO) 13.9 % (13-45); MEAN CORPUSCULAR HEMOGLOBIN 29.8 pg (27.0-33.4); MEAN CORPUSCULAR HGB CONC 34.8 g/dL (32.0-36.0); MEAN CORPUSCULAR VOLUME 86 fl (80-97); MONOCYTES % (AUTO) 6.8 % (3-13); PLATELET COUNT 482 10^3/uL (150-450); RED BLOOD COUNT 3.83 10^6/uL (3.72-5.28); SEGMENTED NEUTROPHILS % (AUTO) 78.8 % (42-78); TOTAL CELLS COUNTED % (AUTO) 100 %; WHITE BLOOD COUNT 10.5 10^3/uL (4.0-10.5)
[2020-06-05 05:51] LABS: ANION GAP 9 (5-19); BLOOD UREA NITROGEN 13 mg/dL (7-20); CALCIUM 8.4 mg/dL (8.4-10.2); CARBON DIOXIDE 31 mmol/L (22-30); CHLORIDE 96 mmol/L (98-107); GLUCOSE 122 mg/dL (75-110); POTASSIUM 3.5 mmol/L (3.6-5.0)
[2020-06-05] MEDS ORDERED: INFLUENZA QUAD (6MOS+) 2020-21 VAC 0.5 ML SYR IM ONE (08:00)
--- NOTE | 2020-06-05 08:15 | RADIOLOGY REPORT (SQ) ---
EXAM DESCRIPTION: KUB/ABDOMEN (SINGLE VIEW) IMAGES COMPLETED DATE/TIME: 06/05/2020 7:49 am REASON FOR STUDY: sbo COMPARISON: 06/04/2020. NUMBER OF VIEWS: One view. TECHNIQUE: Supine radiographic image of the abdomen acquired. LIMITATIONS: None. FINDINGS: BOWEL GAS PATTERN: Small bowel dilation, unchanged. CALCIFICATIONS: No suspicious calcifications. SOFT TISSUES: No gross mass or suggestion of organomegaly. HARDWARE: Stable nasogastric tube. Skin mike. IUD. BONES: No acute fracture. No worrisome bone lesions. OTHER: No other significant finding. IMPRESSION: NO CHANGE IN SMALL BOWEL DILATION. TECHNICAL DOCUMENTATION: JOB ID: [id number] 2010 [employer]- All Rights Reserved Reading location - IP/workstation name: [email or web address]
[2020-06-05] MEDS: ENOXAPARIN SODIUM INJ 40 MG/0.4 ML DISP.SYRIN SUBCUT SCH (10:54)
[2020-06-05] MEDS ORDERED: POTASSI CL 20 MEQ/50 ML RIDER 20 MEQ/50 ML RTUPB IV ONE (12:00)
[2020-06-05] MEDS: MORPHINE SULFATE 10 MG/ML INJ IV PRN (12:27)
--- NOTE | 2020-06-05 14:23 | PDOC PROGRESS REPORT ---
Subjective Progress Note for:: 06/05/20 Subjective:: 44-year-old female status post right hemicolectomy, approximately 2 weeks ago. The patient began having nausea and vomiting at home. She was admitted to hospital and was found to have a small bowel obstruction, likely related to postoperative adhesions. She continues to have output from her NG tube. She did have a small bowel movement overnight. She continues to have cramping lower abdominal pain. She denies chest pain, shortness of breath, headache, dizzin ess, orthostasis, fatigue, weakness. Reason For Visit: SMALL BOWEL OBSTRUCTION Physical Exam Vital Signs: Temp Pulse Resp BP Pulse Ox 98.9 F 95 18 114/64 95 06/05/20 09:00 06/05/20 09:00 06/05/20 09:00 06/05/20 09:00 06/05/20 09:00 Intake & Output 06/04/20 06/05/20 06/06/20 06:59 06:59 06:59 Intake Total 1156 2934 10 Output Total 450 2250 Balance 706 684 10 Weight 76.8 kg 76.8 kg General appearance: PRESENT: no acute distress, cooperative Head exam: PRESENT: atraumatic, normocephalic Eye exam: PRESENT: EOMI, PERRLA. ABSENT: scleral icterus Mouth exam: PRESENT: moist, neck supple Neck exam: ABSENT: meningismus, tenderness, thyromegaly, tracheal deviation Respiratory exam: PRESENT: unlabored. ABSENT: tachypnea, wheezes Cardiovascular exam: ABSENT: tachycardia Pulses: PRESENT: normal radial pulses GI/Abdominal exam: PRESENT: soft, tenderness - Mild, appropriate tenderness. ABSENT: distended Rectal exam: PRESENT: deferred Extremities exam: ABSENT: clubbing Musculoskeletal exam: ABSENT: deformity Neurological exam: PRESENT: alert, awake, oriented to person, oriented to place, oriented to time, oriented to situation, CN II-XII grossly intact Psychiatric exam: ABSENT: agitated, anxious, depressed Focused psych exam: ABSENT: delusional Skin exam: ABSENT: cyanosis, erythema, jaundice Results Laboratory Results: 06/05/20 05:04 06/05/20 05:04 06/05/20 06/05/20 05:04 05:04 WBC 10.5 RBC 3.83 Hgb 11.4 L Hct 32.8 L MCV 86 MCH 29.8 MCHC 34.8 RDW 15.0 H Plt Count 482 H Seg Neutrophils % 78.8 H Sodium 136.1 L Potassium 3.5 L Chloride 96 L Carbon Dioxide 31 H Anion Gap 9 BUN 13 Creatinine 0.87 Est GFR ( Amer) > 60 Glucose 122 H Calcium 8.4 06/03/20 06/03/20 21:39 21:39 Creatine Kinase 60 Troponin I < 0.012 Impressions: Abdomen/Pelvis CT 06/03/20 00:00 IMPRESSION: 1. Significantly dilated loops of small bowel throughout the abdomen with transition transition point immediately proximal to the enterocolic anastomosis in the right upper abdomen. The colon is decompressed. Findings suggest high-grade small bowel obstruction. 2. Small amount of free fluid in abdomen. 3. Mild bibasilar atelectasis and small left pleural effusion. 4. No pulmonary embolus. This exam was performed according to our departmental dose-optimization program, which includes automated exposure control, adjustment of the mA and/or kV according to patient size and/or use of iterative reconstruction technique. Chest X-Ray 06/03/20 20:57 IMPRESSION: 1. Mild bibasilar opacities likely representing atelectasis and trace pleural effusions. 2. Multiple air-fluid levels with dilated loops of small bowel that could represent postoperative ileus but if the patient's surgery was almost 2 weeks ago then this is more suggestive of developing obstruction. Would recommend clinical correlation and consider follow-up CT of the abdomen and pelvis to better evaluate. Chest/Abdomen CTA 06/03/20 23:45 IMPRESSION: 1. Significantly dilated loops of small bowel throughout the abdomen with transition transition point immediately proximal to the enterocolic anastomosis in the right upper abdomen. The colon is decompressed. Findings suggest high-grade small bowel obstruction. 2. Small amount of free fluid in abdomen. 3. Mild bibasilar atelectasis and small left pleural effusion. 4. No pulmonary embolus. This exam was performed according to our departmental dose-optimization program, which includes automated exposure control, adjustment of the mA and/or kV according to patient size and/or use of iterative reconstruction technique. KUB X-Ray 06/05/20 06:00 IMPRESSION: NO CHANGE IN SMALL BOWEL DILATION. Assessment & Plan - Diagnosis (1) Small bowel obstruction due to postoperative adhesions Is this a current diagnosis for this admission?: Yes - Time Anticipated Discharge Disposition: Home, Self Care Anticipated Discharge Timeframe: unknown - Plan Summary Plan Summary: 44-year-old female who is approximately 2 weeks status post laparoscopic right hemicolectomy. The patient has evidence of a small bowel obstruction on CT. She is slightly improved today. Her x-ray shows continued dilation of her small bowel, however she has begun passing flatus and having small bowel movements. Plan to leave her NG tube in place for decompression. Repeat x-rays tomorrow. Hopefully, the patient's symptoms will subside. If they do not subside over the next 24 to 48 hours, she may require revision of her anastomosis. This has been discussed with the patient. She is in agreement with the treatment plan. Lovenox for DVT prophylaxis. No indication for antibiotics at this time. Continue NG tube and IV fluids for now.
[2020-06-05] MEDS: PHENOL/SODIUM PHENOLATE 100 SPRAY/177 ML BOTTLE PO PRN (16:23)
[2020-06-05] MEDS: POTASSI CL 20 MEQ/D5-1/2NS 1L 1,000 ML IV PRN (16:50)
[2020-06-06] MEDS: POTASSI CL 20 MEQ/D5-1/2NS 1L 1,000 ML IV PRN (03:05)
[2020-06-06 06:13] LABS: ANION GAP 9 (5-19); BLOOD UREA NITROGEN 11 mg/dL (7-20); CARBON DIOXIDE 26 mmol/L (22-30); CHLORIDE 100 mmol/L (98-107); GLUCOSE 114 mg/dL (75-110)
--- NOTE | 2020-06-06 09:07 | RADIOLOGY REPORT (SQ) ---
EXAM DESCRIPTION: KUB/ABDOMEN (SINGLE VIEW) IMAGES COMPLETED DATE/TIME: 06/06/2020 8:38 am REASON FOR STUDY: sbo COMPARISON: 06/05/2020 NUMBER OF VIEWS: One view. TECHNIQUE: Supine radiographic image of the abdomen acquired. LIMITATIONS: None. FINDINGS: BOWEL GAS PATTERN: Multiple loops of dilated small bowel in the central left abdomen measu ring up to 4.0 cm, similar to prior. CALCIFICATIONS: No suspicious calcifications. SOFT TISSUES: No gross mass or suggestion of organomegaly. HARDWARE: Surgical clips overlie right upper quadrant and midline abdomen. Additional surgical clips overlie pelvis. Intrauterine device overlies pelvis. Nasoenteric tube tip overlies gastric fundus. BONES: No acute fracture. No worrisome bone lesions. OTHER: No other significant finding. IMPRESSION: Persistent diffuse small bowel dilation within the central left hemiabdomen, similar to prior and compatible with obstruction. Nasoenteric tube tip overlies gastric fundus. TECHNICAL DOCUMENTATION: JOB ID: [id number] 2010 [id number]- All Rights Reserved Reading location - IP/workstation name: [email or web address]
[2020-06-06] MEDS: ENOXAPARIN SODIUM INJ 40 MG/0.4 ML DISP.SYRIN SUBCUT SCH (09:55)
--- NOTE | 2020-06-06 12:46 | PDOC PROGRESS REPORT ---
Subjective Progress Note for:: 06/06/20 Subjective:: 44-year-old female status post right hemicolectomy, approximately 2 weeks ago. The patient began having nausea and vomiting at home. She was admitted to hospital and was found to have a small bowel obstruction, likely related to postoperative adhesions. She continues to have output from her NG tube. She did have a small bowel movement overnight, but she continues to have cramping lower abdominal pain. She denies chest pain, shortness of breath, headache, diz ziness, orthostasis, fatigue, weakness. Reason For Visit: SMALL BOWEL OBSTRUCTION Physical Exam Vital Signs: Temp Pulse Resp BP Pulse Ox 98.5 F 97 18 120/80 99 06/06/20 12:15 06/06/20 12:15 06/06/20 12:15 06/06/20 12:15 06/06/20 12:15 Intake & Output 06/05/20 06/06/20 06/07/20 06:59 06:59 06:59 Intake Total 2934 2100 Output Total 2250 2300 Balance 684 -200 Weight 76.8 kg 76.8 kg Exam: General appearance: PRESENT: no acute distress, cooperative Head exam: PRESENT: atraumatic, normocephalic Eye exam: PRESENT: EOMI, PERRLA. ABSENT: scleral icterus Mouth exam: PRESENT: moist, neck supple Neck exam: ABSENT: meningismus, tenderness, thyromegaly, tracheal deviation Respiratory exam: PRESENT: unlabored. ABSENT: tachypnea, wheezes Cardiovascular exam: ABSENT: tachycardia Pulses: PRESENT: normal radial pulses GI/Abdominal exam: PRESENT: soft, tenderness - Mild, appropriate tenderness. ABSENT: distended Rectal exam: PRESENT: deferred Extremities exam: ABSENT: clubbing Musculoskeletal exam: ABSENT: deformity Neurological exam: PRESENT: alert, awake, oriented to person, oriented to place, oriented to time, oriented to situation, CN II-XII grossly intact Psychiatric exam: ABSENT: agitated, anxious, depressed Focused psych exam: ABSENT: delusional Skin exam: ABSENT: cyanosis, erythema, jaundice Results Laboratory Results: 06/05/20 05:04 06/06/20 05:13 06/06/20 05:13 Sodium 135.4 L Potassium 4.0 Chloride 100 Carbon Dioxide 26 Anion Gap 9 BUN 11 Creatinine 0.79 Est GFR ( Amer) > 60 Glucose 114 H Calcium 8.0 L 06/03/20 06/03/20 21:39 21:39 Creatine Kinase 60 Troponin I < 0.012 Impressions: Abdomen/Pelvis CT 06/03/20 00:00 IMPRESSION: 1. Significantly dilated loops of small bowel throughout the abdomen with transition transition point immediately proximal to the enterocolic anastomosis in the right upper abdomen. The colon is decompressed. Findings suggest high-grade small bowel obstruction. 2. Small amount of free fluid in abdomen. 3. Mild bibasilar atelectasis and small left pleural effusion. 4. No pulmonary embolus. This exam was performed according to our departmental dose-optimization program, which includes automated exposure control, adjustment of the mA and/or kV according to patient size and/or use of iterative reconstruction technique. Chest X-Ray 06/03/20 20:57 IMPRESSION: 1. Mild bibasilar opacities likely representing atelectasis and trace pleural effusions. 2. Multiple air-fluid levels with dilated loops of small bowel that could represent postoperative ileus but if the patient's surgery was almost 2 weeks ago then this is more suggestive of developing obstruction. Would recommend clinical correlation and consider follow-up CT of the abdomen and pelvis to better evaluate. Chest/Abdomen CTA 06/03/20 23:45 IMPRESSION: 1. Significantly dilated loops of small bowel throughout the abdomen with transition transition point immediately proximal to the enterocolic anastomosis in the right upper abdomen. The colon is decompressed. Findings suggest high-grade small bowel obstruction. 2. Small amount of free fluid in abdomen. 3. Mild bibasilar atelectasis and small left pleural effusion. 4. No pulmonary embolus. This exam was performed according to our departmental dose-optimization program, which includes automated exposure control, adjustment of the mA and/or kV according to patient size and/or use of iterative reconstruction technique. KUB X-Ray 06/06/20 06:00 IMPRESSION: Persistent diffuse small bowel dilation within the central left hemiabdomen, similar to prior and compatible with obstruction. Nasoenteric tube tip overlies gastric fundus. Assessment & Plan - Diagnosis (1) Small bowel obstruction due to postoperative adhesions Is this a current diagnosis for this admission?: Yes - Time Anticipated Discharge Disposition: Home, Self Care Anticipated Discharge Timeframe: unknown - Plan Summary Plan Summary: 44-year-old female who is approximately 2 weeks status post laparoscopic right hemicolectomy. The patient has evidence of a small bowel obstruction on CT. She is stable today. Her x-ray again show continued dilation of her small bowel. There has been littel interval imnprovement, if any. Plan for exploration today with lysis of adhesions and possible revision of her anatomosis. This has been discussed with the patient. She is in agreement with the treatment plan. Lovenox for DVT prophylaxis. Continue NG tube and IV fluids for now.
[2020-06-06] MEDS ORDERED: MIDAZOLAM 2 MG/2 ML INJ ONE (15:45)
[2020-06-06] MEDS ORDERED: PROPOFOL INJ 200 MG/20 ML VIAL IV ONE (15:45)
[2020-06-06] MEDS ORDERED: FENTANYL CITRATE INJ/PF 250 MCG/5 ML AMPULE ONE (15:45)
[2020-06-06] MEDS ORDERED: MORPHINE SULFATE 10 MG/ML INJ ONE (15:45)
[2020-06-06] MEDS ORDERED: BUPIVACAINE HCL 0.25 % INJ/PF (2.5 MG/1 ML) 30 ML VIAL ONE (15:48)
[2020-06-06] MEDS ORDERED: CEFOXITIN 1 GM/D5W RTU 2 GM/100 ML RTUPB IV ONE (15:59)
[2020-06-06] MEDS ORDERED: DEXMEDETOMIDINE INJ 80 MCG/20 ML VIAL IV ONE (16:43)
[2020-06-06] MEDS ORDERED: PROMETHAZINE HCL INJ 25 MG/1 ML VIAL IV PRN (17:41)
[2020-06-06] MEDS ORDERED: MEPERIDINE HCL/PF INJ 25 MG/1 ML DISP.SYRIN IV PRN (17:41)
[2020-06-06] MEDS ORDERED: MORPHINE SULFATE 10 MG/ML INJ IV PRN (17:41)
[2020-06-06] MEDS ORDERED: DIPHENHYDRAMINE HCL 50 MG/ML VIAL IV PRN (17:41)
[2020-06-06] MEDS: FENTANYL CITRATE INJ/PF 100 MCG/2 ML AMPUL IV PRN ×2 (18:30→18:35)
[2020-06-06] MEDS ORDERED: ACETAMINOPHEN 1,000 MG/100 ML RTUPB IV ONE ×2 (18:35→19:15)
[2020-06-06] MEDS ORDERED: KETOROLAC TROMETHAMINE INJ/PF 30 MG/1 ML SDV ONE (18:35)
[2020-06-06] MEDS: KETOROLAC TROMETHAMINE INJ/PF 30 MG/1 ML SDV IV SCH (19:05)
[2020-06-06] MEDS ORDERED: NORMAL SALINE 1000 ML 1,000 ML IV ONE (21:00)
[2020-06-06] MEDS ORDERED: KETOROLAC TROMETHAMINE INJ/PF 30 MG/1 ML SDV IV SCH (22:00)
[2020-06-06] MEDS ORDERED: ACETAMINOPHEN 1,000 MG/100 ML RTUPB IV SCH (22:00)
[2020-06-07] MEDS: POTASSI CL 20 MEQ/D5-1/2NS 1L 1,000 ML IV PRN ×2 (01:05→17:29)
[2020-06-07] MEDS: CEFOXITIN SODIUM 2 GM in DEXTROSE 5%-WATER 100 ML IV SCH ×2 (01:05→06:06)
[2020-06-07] MEDS: ACETAMINOPHEN 1,000 MG/100 ML RTUPB IV SCH ×3 (02:39→17:29)
[2020-06-07] MEDS: KETOROLAC TROMETHAMINE INJ/PF 30 MG/1 ML SDV IV SCH ×3 (02:39→17:27)
[2020-06-07] MEDS: PHENOL/SODIUM PHENOLATE 100 SPRAY/177 ML BOTTLE PO PRN (06:10)
--- NOTE | 2020-06-07 08:54 | Operative Report ---
Nonrecallable Operative Report DATE OF SURGERY: 06/06/20 PREOPERATIVE DIAGNOSIS: Small bowel obstruction after laparoscopic right hemicolectomy POSTOPERATIVE DIAGNOSIS: 1. Small bowel obstruction due to internal hernia at the mesenteric defect. 2. Kinking/twisting of the anastomosis (at the internal hernia), causing discoloration of the small intestine. 3. No evidence of perforation or abscess. OPERATION: 1. Exploratory laparotomy. 2. Reduction of internal hernia found at the mesenteric defect. 3. Resection of previous anastomosis. 4. Creation of new isoperistaltic ileocolic anastomosis. 5. Closure of the mesenteric defect. SURGEON: FAINA PARNELL ANESTHESIA: GA TISSUE REMOVED OR ALTERED: Small bowel and colon comprising the previous anastomosis. COMPLICATIONS: Internal hernia at the mesenteric defect, causing kinking/twisting of the anastomosis. This required revision. ESTIMATED BLOOD LOSS: 50 cc PROCEDURE: Drains/implants: None. Procedure in detail: After informed consent was obtained, the patient was brought to the operating room and laid in the supine position. The area of the abdomen was prepped and draped in a normal sterile fashion. The supraumbilical incision had mike present. The mike were removed, and the skin was opened. The previous sutures were removed, and the abdomen was opened. The incision was then lengthened proximally and distally in the midline. The abdomen was then opened. There was a large amount of distended small bowel. The small bowel was very carefully eviscerated. The bowel was inspected. The bowel wall appeared to be healthy, although it was very distended. The small bowel was traced from the ligament of Treitz, down to the ileocolic anastomosis. Upon following the bowel, there was found to be an internal hernia, at the mesenteric defect. This was causing kinking and twisting at the anastomosis, which is the source of the small bowel obstruction. The internal hernia was reduced, and the anastomosis was untwisted. The anastomosis appeared somewhat unhealthy because of its previous position. In light of this, resection of the anastomosis was felt prudent. The colon and small bowel were divided using the VENICE 100 stapler both proximal and distal to the anastomosis. The anastomosis was freed from the mesentery using the LigaSure device. After this was completed, attention was turned to creation of an isoperistaltic anastomosis. A defect was created at the proximal end of the transverse colon, as well as the proximal aspect of the terminal ileum. A large amount of succus entericus was removed from the colon and small bowel. Using a side to side technique, the VENICE 100 stapler was used to create an anastomosis between the terminal ileum and the transverse colon. This was done in an isoperistaltic fashion. Crotch stitches were placed at the proximal and distal aspects of the anastomosis. The resultin g defect was closed in 2 layers using 3-0 Vicryl suture in simple running fashion, buttressed with 3-0 Vicryl Lembert sutures. Once the anastomosis was completed, it was tested. It was found to be free of any leakage of air or liquid. Once this was confirmed, the anastomosis was returned to the abdomen, as well as the small bowel. The small bowel was inspected before it was completely returned to the abdominal cavity. There was a small serosal tear found on a portion of the small bowel. This was repaired using 3-0 Vicryl Lembert sutures. Once this was completed, the abdomen was copiously irrigated and suctioned. The NG tube was confirmed to be within the lumen of the stomach via palpation. The midline fascia was then closed using #1 double-stranded looped PDS suture in simple running fashion. Once this was completed, the overlying skin was closed using skin mike. Dressings were placed, and the procedure was concluded. All sponge, instrument, and needle counts were correct x2. Condition: Stable.
[2020-06-07 09:29] LABS: HEMATOCRIT 36.6 % (36.0-47.0); HEMOGLOBIN 12.1 g/dL (12.0-15.5); MEAN CORPUSCULAR HEMOGLOBIN 28.9 pg (27.0-33.4); MEAN CORPUSCULAR HGB CONC 33.1 g/dL (32.0-36.0); MEAN CORPUSCULAR VOLUME 87 fl (80-97); PLATELET COUNT 470 10^3/uL (150-450); RED CELL DISTRIBUTION WIDTH 15.1 % (11.5-14.0); WHITE BLOOD COUNT 20.1 10^3/uL (4.0-10.5)
[2020-06-07 09:47] LABS: ANION GAP 7 (5-19); BLOOD UREA NITROGEN 13 mg/dL (7-20); CALCIUM 7.8 mg/dL (8.4-10.2); CARBON DIOXIDE 23 mmol/L (22-30); CHLORIDE 103 mmol/L (98-107); GLUCOSE 159 mg/dL (75-110); POTASSIUM 4.9 mmol/L (3.6-5.0)
[2020-06-07 09:51] LABS: ABSOLUTE MONOCYTES # (MANUAL) 0.2 10^3/uL (0.1-1.4); ANISOCYTOSIS SLIGHT; BAND NEUTROPHILS % (MANUAL) 1 % (3-5); BASOPHILS % (MANUAL) 0 % (0-2); EOSINOPHILS % (MANUAL) 0 % (0-6); LYMPHOCYTES % (MANUAL) 5 % (13-45); MONOCYTES % (MANUAL) 1 % (3-13); PLATELET COMMENT ADEQUATE; SEGMENTED NEUTROPHILS % (MAN) 93 % (42-78); TOTAL CELLS COUNTED 100
[2020-06-07 09:52] LABS: OVALOCYTES SLIGHT; PLATELET LARGE PRESENT
[2020-06-07] MEDS: ENOXAPARIN SODIUM INJ 40 MG/0.4 ML DISP.SYRIN SUBCUT SCH (10:01)
[2020-06-07] MEDS: MORPHINE SULFATE 10 MG/ML INJ IV PRN (11:42)
[2020-06-08] MEDS: KETOROLAC TROMETHAMINE INJ/PF 30 MG/1 ML SDV IV SCH ×3 (02:40→18:25)
[2020-06-08] MEDS: ACETAMINOPHEN 1,000 MG/100 ML RTUPB IV SCH ×3 (02:41→18:25)
[2020-06-08] MEDS: POTASSI CL 20 MEQ/D5-1/2NS 1L 1,000 ML IV PRN ×2 (05:51→23:07)
[2020-06-08 06:44] LABS: HEMOGLOBIN 10.4 g/dL (12.0-15.5); MEAN CORPUSCULAR HEMOGLOBIN 29.2 pg (27.0-33.4); MEAN CORPUSCULAR HGB CONC 33.6 g/dL (32.0-36.0); MEAN CORPUSCULAR VOLUME 87 fl (80-97); PLATELET COUNT 379 10^3/uL (150-450); RED BLOOD COUNT 3.58 10^6/uL (3.72-5.28); RED CELL DISTRIBUTION WIDTH 15.2 % (11.5-14.0); WHITE BLOOD COUNT 20.6 10^3/uL (4.0-10.5)
[2020-06-08 07:04] LABS: BASOPHILS % (MANUAL) 0 % (0-2); EOSINOPHILS % (MANUAL) 1 % (0-6); LYMPHOCYTES % (MANUAL) 0 % (13-45); MONOCYTES % (MANUAL) 5 % (3-13); SEGMENTED NEUTROPHILS % (MAN) 94 % (42-78); TOTAL CELLS COUNTED 100
[2020-06-08 07:05] LABS: ANISOCYTOSIS 1+; OVALOCYTES 1+; PLATELET COMMENT ADEQUATE; POIKILOCYTOSIS 1+; TOXIC GRANULATION SLIGHT
[2020-06-08 07:21] LABS: ANION GAP 6 (5-19); BLOOD UREA NITROGEN 14 mg/dL (7-20); CALCIUM 7.4 mg/dL (8.4-10.2); CARBON DIOXIDE 24 mmol/L (22-30); CHLORIDE 103 mmol/L (98-107); GLUCOSE 109 mg/dL (75-110); POTASSIUM 4.2 mmol/L (3.6-5.0)
--- NOTE | 2020-06-08 08:02 | PDOC PROGRESS REPORT ---
Subjective Reason For Visit: SMALL BOWEL OBSTRUCTION Physical Exam Vital Signs: Temp Pulse Resp BP Pulse Ox 100.3 F 126 H 18 101/59 L 94 06/08/20 04:27 06/08/20 04:27 06/08/20 04:27 06/08/20 04:27 06/08/20 04:27 Intake & Output 06/07/20 06/08/20 06/09/20 06:59 06:59 06:59 Intake Total 5700 2700 Output Total 2250 400 Balance 3450 2300 Weight 76.5 kg 86.6 kg Results Laboratory Results: 06/08/20 06:09 06/08/20 06:09 06/07/20 06/07/20 06/08/20 09:20 09:20 06:09 WBC 20.1 H 20.6 H RBC 4.20 3.58 L Hgb 12.1 10.4 L Hct 36.6 31.0 L MCV 87 87 MCH 28.9 29.2 MCHC 33.1 33.6 RDW 15.1 H 15.2 H Plt Count 470 H 379 Seg Neutrophils % Not Reportable Not Reportable Sodium 133.3 L Potassium 4.9 Chloride 103 Carbon Dioxide 23 Anion Gap 7 BUN 13 Creatinine 0.82 Est GFR ( Amer) > 60 Glucose 159 H Calcium 7.8 L 06/08/20 06:09 WBC RBC Hgb Hct MCV MCH MCHC RDW Plt Count Seg Neutrophils % Sodium 133.4 L Potassium 4.2 Chloride 103 Carbon Dioxide 24 Anion Gap 6 BUN 14 Creatinine 0.90 Est GFR ( Amer) > 60 Glucose 109 Calcium 7.4 L 06/03/20 06/03/20 21:39 21:39 Creatine Kinase 60 Troponin I < 0.012 Impressions: Abdomen/Pelvis CT 06/03/20 00:00 IMPRESSION: 1. Significantly dilated loops of small bowel throughout the abdomen with transition transition point immediately proximal to the enterocolic anastomosis in the right upper abdomen. The colon is decompressed. Findings suggest high-grade small bowel obstruction. 2. Small amount of free fluid in abdomen. 3. Mild bibasilar atelectasis and small left pleural effusion. 4. No pulmonary embolus. This exam was performed according to our departmental dose-optimization program, which includes automated exposure control, adjustment of the mA and/or kV according to patient size and/or use of iterative reconstruction technique. Chest X-Ray 06/03/20 20:57 IMPRESSION: 1. Mild bibasilar opacities likely representing atelectasis and trace pleural effusions. 2. Multiple air-fluid levels with dilated loops of small bowel that could represent postoperative ileus but if the patient's surgery was almost 2 weeks ago then this is more suggestive of developing obstruction. Would recommend clinical correlation and consider follow-up CT of the abdomen and pelvis to better evaluate. Chest/Abdomen CTA 06/03/20 23:45 IMPRESSION: 1. Significantly dilated loops of small bowel throughout the abdomen with transition transition point immediately proximal to the enterocolic anastomosis in the right upper abdomen. The colon is decompressed. Findings suggest high-grade small bowel obstruction. 2. Small amount of free fluid in abdomen. 3. Mild bibasilar atelectasis and small left pleural effusion. 4. No pulmonary embolus. This exam was performed according to our departmental dose-optimization program, which includes automated exposure control, adjustment of the mA and/or kV according to patient size and/or use of iterative reconstruction technique. KUB X-Ray 06/06/20 06:00 IMPRESSION: Persistent diffuse small bowel dilation within the central left hemiabdomen, similar to prior and compatible with obstruction. Nasoenteric tube tip overlies gastric fundus. Assessment & Plan - Diagnosis (1) Small bowel obstruction due to postoperative adhesions Is this a current diagnosis for this admission?: Yes - Time Anticipated Discharge Disposition: Home, Self Care Anticipated Discharge Timeframe: unknown - Plan Summary Plan Summary: 44-year-old female status post exploratory laparotomy for bowel obstruction. Her anastomosis was revised. Today, she complains of discomfort from the NG tube. She is requesting that it be removed. I discussed with her the possibility that it may have to be replaced, if she experienced a postoperative ileus. She is willing to take this chance. Remove NG tube. Remove Molina catheter. Ambulate in the hallways. Aggressive pulmonary toilet. Awaiting bow el function.
[2020-06-08] MEDS: MORPHINE SULFATE 10 MG/ML INJ IV PRN (08:15)
[2020-06-08] MEDS: ENOXAPARIN SODIUM INJ 40 MG/0.4 ML DISP.SYRIN SUBCUT SCH (11:21)
--- NOTE | 2020-06-08 14:44 | PDOC PROGRESS REPORT ---
Subjective Progress Note for:: 06/08/20 Reason For Visit: SMALL BOWEL OBSTRUCTION Physical Exam Vital Signs: Temp Pulse Resp BP Pulse Ox 99.0 F 118 H 18 101/59 L 97 06/08/20 12:02 06/08/20 12:02 06/08/20 12:02 06/08/20 12:02 06/08/20 12:02 Intake & Output 06/07/20 06/08/20 06/09/20 06:59 06:59 06:59 Intake Total 5700 2700 Output Total 2250 400 Balance 3450 2300 Weight 76.5 kg 86.6 kg 86.6 kg Results Laboratory Results: 06/08/20 06:09 06/08/20 06:09 06/08/20 06/08/20 06:09 06:09 WBC 20.6 H RBC 3.58 L Hgb 10.4 L Hct 31.0 L MCV 87 MCH 29.2 MCHC 33.6 RDW 15.2 H Plt Count 379 Seg Neutrophils % Not Reportable Sodium 133.4 L Potassium 4.2 Chloride 103 Carbon Dioxide 24 Anion Gap 6 BUN 14 Creatinine 0.90 Est GFR ( Amer) > 60 Glucose 109 Calcium 7.4 L 06/03/20 06/03/20 21:39 21:39 Creatine Kinase 60 Troponin I < 0.012 Impressions: Abdomen/Pelvis CT 06/03/20 00:00 IMPRESSION: 1. Significantly dilated loops of small bowel throughout the abdomen with transition transition point immediately proximal to the enterocolic anastomosis in the right upper abdomen. The colon is decompressed. Findings suggest high-grade small bowel obstruction. 2. Small amount of free fluid in abdomen. 3. Mild bibasilar atelectasis and small left pleural effusion. 4. No pulmonary embolus. This exam was performed according to our departmental dose-optimization program, which includes automated exposure control, adjustment of the mA and/or kV according to patient size and/or use of iterative reconstruction technique. Chest X-Ray 06/03/20 20:57 IMPRESSION: 1. Mild bibasilar opacities likely representing atelectasis and trace pleural effusions. 2. Multiple air-fluid levels with dilated loops of small bowel that could represent postoperative ileus but if the patient's surgery was almost 2 weeks ago then this is more suggestive of developing obstruction. Would recommend clinical correlation and consider follow-up CT of the abdomen and pelvis to better evaluate. Chest/Abdomen CTA 06/03/20 23:45 IMPRESSION: 1. Significantly dilated loops of small bowel throughout the abdomen with transition transition point immediately proximal to the enterocolic anastomosis in the right upper abdomen. The colon is decompressed. Findings suggest high-grade small bowel obstruction. 2. Small amount of free fluid in abdomen. 3. Mild bibasilar atelectasis and small left pleural effusion. 4. No pulmonary embolus. This exam was performed according to our departmental dose-optimization program, which includes automated exposure control, adjustment of the mA and/or kV according to patient size and/or use of iterative reconstruction technique. KUB X-Ray 06/06/20 06:00 IMPRESSION: Persistent diffuse small bowel dilation within the central left hemiabdomen, similar to prior and compatible with obstruction. Nasoenteric tube tip overlies gastric fundus. Assessment & Plan - Diagnosis (1) Small bowel obstruction due to postoperative adhesions Is this a current diagnosis for this admission?: Yes - Time Anticipated Discharge Disposition: Home, Self Care Anticipated Discharge Timeframe: unknown - Plan Summary Plan Summary: 44-year-old female status post exploratory laparotomy for bowel obstruction. Her anastomosis was revised. She denies nausea or vomiting. She reports feeling "rumbling" in her abdomen. Urinating without difficulty. Ambulate in the hallways. Aggressive pulmonary toilet. Awaiting bowel function. OK for gum and hard candies, otherwise NPO.
[2020-06-09] MEDS ORDERED: NORMAL SALINE 1000 ML 1,000 ML IV PRN (00:18)
[2020-06-09] MEDS: KETOROLAC TROMETHAMINE INJ/PF 30 MG/1 ML SDV IV SCH ×3 (01:10→17:12)
[2020-06-09] MEDS: ACETAMINOPHEN 1,000 MG/100 ML RTUPB IV SCH ×3 (01:12→17:12)
[2020-06-09 04:45] LABS: HEMATOCRIT 27.9 % (36.0-47.0); HEMOGLOBIN 9.4 g/dL (12.0-15.5); MEAN CORPUSCULAR HEMOGLOBIN 28.9 pg (27.0-33.4); MEAN CORPUSCULAR HGB CONC 33.7 g/dL (32.0-36.0); MEAN CORPUSCULAR VOLUME 86 fl (80-97); PLATELET COUNT 356 10^3/uL (150-450); RED BLOOD COUNT 3.25 10^6/uL (3.72-5.28); RED CELL DISTRIBUTION WIDTH 15.3 % (11.5-14.0); WHITE BLOOD COUNT 21.6 10^3/uL (4.0-10.5)
[2020-06-09 05:08] LABS: CARBON DIOXIDE 24 mmol/L (22-30); GLUCOSE 101 mg/dL (75-110)
[2020-06-09 05:09] LABS: BLOOD UREA NITROGEN 13 mg/dL (7-20); CALCIUM 7.6 mg/dL (8.4-10.2); POTASSIUM 4.1 mmol/L (3.6-5.0)
[2020-06-09 05:20] LABS: ABSOLUTE LYMPHOCYTES# (MANUAL) 0.9 10^3/uL (0.5-4.7); BASOPHILS % (MANUAL) 0 % (0-2); EOSINOPHILS % (MANUAL) 0 % (0-6); LYMPHOCYTES % (MANUAL) 4 % (13-45); MONOCYTES % (MANUAL) 0 % (3-13); SEGMENTED NEUTROPHILS % (MAN) 96 % (42-78); TOTAL CELLS COUNTED 100
[2020-06-09 05:22] LABS: ANISOCYTOSIS SLIGHT; PLATELET COMMENT ADEQUATE; RBC MORPHOLOGY COMMENT NORMO-CYTIC/CHROMIC; SCHISTOCYTES SLIGHT; TEAR DROP CELLS SLIGHT; TOXIC GRANULATION SLIGHT
[2020-06-09 05:23] LABS: PLATELET CLUMPS PRESENT
[2020-06-09 05:27] LABS: ANION GAP 7 (5-19); CHLORIDE 103 mmol/L (98-107)
[2020-06-09] MEDS: ENOXAPARIN SODIUM INJ 40 MG/0.4 ML DISP.SYRIN SUBCUT SCH (10:59)
--- NOTE | 2020-06-09 11:34 | PDOC PROGRESS REPORT ---
Subjective Progress Note for:: 06/09/20 Reason For Visit: SMALL BOWEL OBSTRUCTION Physical Exam Vital Signs: Temp Pulse Resp BP Pulse Ox 99.0 F 99 18 116/69 97 06/09/20 08:15 06/09/20 08:15 06/09/20 01:19 06/09/20 08:15 06/09/20 08:15 Intake & Output 06/08/20 06/09/20 06/10/20 06:59 06:59 06:59 Intake Total 2700 1280 Output Total 400 650 Balance 2300 630 Weight 86.6 kg 86.4 kg Results Laboratory Results: 06/09/20 04:15 06/09/20 04:15 06/09/20 06/09/20 04:15 04:15 WBC 21.6 H RBC 3.25 L Hgb 9.4 L Hct 27.9 L MCV 86 MCH 28.9 MCHC 33.7 RDW 15.3 H Plt Count 356 Seg Neutrophils % Not Reportable Sodium 133.5 L Potassium 4.1 Chloride 103 Carbon Dioxide 24 Anion Gap 7 BUN 13 Creatinine 0.62 Est GFR ( Amer) > 60 Glucose 101 Calcium 7.6 L 06/03/20 06/03/20 21:39 21:39 Creatine Kinase 60 Troponin I < 0.012 Impressions: Abdomen/Pelvis CT 06/03/20 00:00 IMPRESSION: 1. Significantly dilated loops of small bowel throughout the abdomen with transition transition point immediately proximal to the enterocolic anastomosis in the right upper abdomen. The colon is decompressed. Findings suggest high-grade small bowel obstruction. 2. Small amount of free fluid in abdomen. 3. Mild bibasilar atelectasis and small left pleural effusion. 4. No pulmonary embolus. This exam was performed according to our departmental dose-optimization program, which includes automated exposure control, adjustment of the mA and/or kV according to patient size and/or use of iterative reconstruction technique. Chest X-Ray 06/03/20 20:57 IMPRESSION: 1. Mild bibasilar opacities likely representing atelectasis and trace pleural effusions. 2. Multiple air-fluid levels with dilated loops of small bowel that could represent postoperative ileus but if the patient's surgery was almost 2 weeks ago then this is more suggestive of developing obstruction. Would recommend clinical correlation and consider follow-up CT of the abdomen and pelvis to better evaluate. Chest/Abdomen CTA 06/03/20 23:45 IMPRESSION: 1. Significantly dilated loops of small bowel throughout the abdomen with transition transition point immediately proximal to the enterocolic anastomosis in the right upper abdomen. The colon is decompressed. Findings suggest high-grade small bowel obstruction. 2. Small amount of free fluid in abdomen. 3. Mild bibasilar atelectasis and small left pleural effusion. 4. No pulmonary embolus. This exam was performed according to our departmental dose-optimization program, which includes automated exposure control, adjustment of the mA and/or kV according to patient size and/or use of iterative reconstruction technique. KUB X-Ray 06/06/20 06:00 IMPRESSION: Persistent diffuse small bowel dilation within the central left hemiabdomen, similar to prior and compatible with obstruction. Nasoenteric tube tip overlies gastric fundus. Assessment & Plan - Diagnosis (1) Small bowel obstruction due to postoperative adhesions Is this a current diagnosis for this admission?: Yes - Time Anticipated Discharge Disposition: Home with Home Health Anticipated Discharge Timeframe: within 48 hours - Plan Summary Plan Summary: 44-year-old female status post exploratory laparotomy for bowel obstruction. Her anastomosis was revised. She reports some vomiting last night. She has had several bowel movements this morning, and is feeling better. She is urinating without difficulty. Ambulate in the hallways. Aggressive pulmonary toilet. Advance to full liquids. D/c IVF. Midline wound with some purulence. Small area opened. Start damp to dry dressing changes.
[2020-06-10] MEDS: KETOROLAC TROMETHAMINE INJ/PF 30 MG/1 ML SDV IV SCH ×3 (02:43→17:59)
[2020-06-10] MEDS: MORPHINE SULFATE 10 MG/ML INJ IV PRN (04:37)
--- NOTE | 2020-06-10 08:59 | RADIOLOGY REPORT (SQ) ---
EXAM DESCRIPTION: KUB/ABDOMEN (SINGLE VIEW) IMAGES COMPLETED DATE/TIME: 06/10/2020 7:58 am REASON FOR STUDY: nausea, s/p laparotomy COMPARISON: Abdominal films 06/04/2020 06/05/2020. NUMBER OF VIEWS: One view. TECHNIQUE: Supine radiographic image of the abdomen acquired. LIMITATIONS: Upper abdomen cropped from the field of view FINDINGS: BOWEL GAS PATTERN: Air bubble in the gastric antrum. Persistent dilated small bowel loops in the mid abdomen. Air is now present in the hepatic flexure colon. No definite air in the rectum. CALCIFICATIONS: No suspicious calcifications. SOFT TISSUES: No gross mass or suggestion of organomegaly. HARDWARE: IUD in the midline pelvis. Laparoscopic trocar tract mike, bowel anastomotic mike in the right mid abdomen BONES: No acute fracture. No worrisome bone lesions. OTHER: No other significant finding. IMPRESSION: Probable resolving ileus TECHNICAL DOCUMENTATION: JOB ID: [id number] 2010 [employer]- All Rights Reserved Reading location - IP/workstation name: [email or web address]
[2020-06-10 09:03] LABS: ABSOLUTE BASOPHILS # (AUTO) 0.1 10^3/uL (0.0-0.2); ABSOLUTE EOSINOPHILS # (AUTO) 0.1 10^3/uL (0.0-0.6); ABSOLUTE MONOCYTES (AUTO) 0.7 10^3/uL (0.1-1.4); ABSOLUTE NEUT (AUTO) 12.4 10^3/uL (1.7-8.2); BASOPHILS % (AUTO) 0.5 % (0-2); HEMATOCRIT 25.7 % (36.0-47.0); HEMOGLOBIN 8.9 g/dL (12.0-15.5); LYMPHOCYTES % (AUTO) 6.8 % (13-45); MEAN CORPUSCULAR HEMOGLOBIN 29.5 pg (27.0-33.4); MEAN CORPUSCULAR HGB CONC 34.5 g/dL (32.0-36.0); MEAN CORPUSCULAR VOLUME 86 fl (80-97); MONOCYTES % (AUTO) 4.6 % (3-13); PLATELET COUNT 372 10^3/uL (150-450); RED CELL DISTRIBUTION WIDTH 15.5 % (11.5-14.0); SEGMENTED NEUTROPHILS % (AUTO) 87.1 % (42-78); TOTAL CELLS COUNTED % (AUTO) 100 %; WHITE BLOOD COUNT 14.3 10^3/uL (4.0-10.5)
[2020-06-10 09:28] LABS: ANION GAP 11 (5-19); BLOOD UREA NITROGEN 16 mg/dL (7-20); CALCIUM 7.8 mg/dL (8.4-10.2); CARBON DIOXIDE 22 mmol/L (22-30); CHLORIDE 103 mmol/L (98-107); POTASSIUM 4.2 mmol/L (3.6-5.0)
[2020-06-10 09:31] LABS: GLUCOSE 69 mg/dL (75-110)
[2020-06-10] MEDS: FAMOTIDINE INJ/PF 20 MG/2 ML SDV IV SCH ×2 (10:33→21:24)
[2020-06-10] MEDS: ENOXAPARIN SODIUM INJ 40 MG/0.4 ML DISP.SYRIN SUBCUT SCH (10:35)
--- NOTE | 2020-06-10 14:49 | PDOC PROGRESS REPORT ---
Subjective Progress Note for:: 06/10/20 Reason For Visit: SMALL BOWEL OBSTRUCTION Physical Exam Vital Signs: Temp Pulse Resp BP Pulse Ox 98.4 F 91 16 105/65 97 06/10/20 03:43 06/10/20 03:43 06/10/20 03:43 06/10/20 03:43 06/10/20 03:43 Intake & Output 06/09/20 06/10/20 06/11/20 06:59 06:59 06:59 Intake Total 1280 2210 Output Total 650 650 Balance 630 1560 Weight 86.4 kg 86.4 kg Results Laboratory Results: 06/10/20 08:10 06/10/20 08:10 06/10/20 06/10/20 08:10 08:10 WBC 14.3 H RBC 3.00 L Hgb 8.9 L Hct 25.7 L MCV 86 MCH 29.5 MCHC 34.5 RDW 15.5 H Plt Count 372 Seg Neutrophils % 87.1 H Sodium 135.5 L Potassium 4.2 Chloride 103 Carbon Dioxide 22 Anion Gap 11 BUN 16 Creatinine 0.73 Est GFR ( Amer) > 60 Glucose 69 L Calcium 7.8 L 06/03/20 06/03/20 21:39 21:39 Creatine Kinase 60 Troponin I < 0.012 Impressions: Abdomen/Pelvis CT 06/03/20 00:00 IMPRESSION: 1. Significantly dilated loops of small bowel throughout the abdomen with transition transition point immediately proximal to the enterocolic anastomosis in the right upper abdomen. The colon is decompressed. Findings suggest high-grade small bowel obstruction. 2. Small amount of free fluid in abdomen. 3. Mild bibasilar atelectasis and small left pleural effusion. 4. No pulmonary embolus. This exam was performed according to our departmental dose-optimization program, which includes automated exposure control, adjustment of the mA and/or kV according to patient size and/or use of iterative reconstruction technique. Chest X-Ray 06/03/20 20:57 IMPRESSION: 1. Mild bibasilar opacities likely representing atelectasis and trace pleural effusions. 2. Multiple air-fluid levels with dilated loops of small bowel that could represent postoperative ileus but if the patient's surgery was almost 2 weeks ago then this is more suggestive of developing obstruction. Would recommend clinical correlation and consider follow-up CT of the abdomen and pelvis to better evaluate. Chest/Abdomen CTA 06/03/20 23:45 IMPRESSION: 1. Significantly dilated loops of small bowel throughout the abdomen with transition transition point immediately proximal to the enterocolic anastomosis in the right upper abdomen. The colon is decompressed. Findings suggest high-grade small bowel obstruction. 2. Small amount of free fluid in abdomen. 3. Mild bibasilar atelectasis and small left pleural effusion. 4. No pulmonary embolus. This exam was performed according to our departmental dose-optimization program, which includes automated exposure control, adjustment of the mA and/or kV according to patient size and/or use of iterative reconstruction technique. KUB X-Ray 06/10/20 00:00 IMPRESSION: Probable resolving ileus Assessment & Plan - Diagnosis (1) Small bowel obstruction due to postoperative adhesions Is this a current diagnosis for this admission?: Yes - Time Anticipated Discharge Disposition: Home with Home Health Anticipated Discharge Timeframe: within 72 hours - Plan Summary Plan Summary: 44-year-old female status post exploratory laparotomy for bowel obstruction. Her anastomosis was revised. She again reports some vomiting last night, but she continues to have bowel movements and flatus. No nausea today. Her x-ray shows air in the colon. She is urinating without difficulty. Ambulate in the hallways. Aggressive pulmonary toilet. Cont full liquids. Cont damp to dry dressing changes to midline wound.
[2020-06-10] MEDS: ONDANSETRON HCL INJ/PF 4 MG/2 ML SDV IV PRN ×2 (16:50→23:26)
[2020-06-11] MEDS: KETOROLAC TROMETHAMINE INJ/PF 30 MG/1 ML SDV IV SCH ×3 (01:31→18:18)
[2020-06-11 06:30] LABS: ABSOLUTE EOSINOPHILS # (AUTO) 0.1 10^3/uL (0.0-0.6); ABSOLUTE LYMPHOCYTES (AUTO) 0.8 10^3/uL (0.5-4.7); ABSOLUTE MONOCYTES (AUTO) 0.8 10^3/uL (0.1-1.4); ABSOLUTE NEUT (AUTO) 7.9 10^3/uL (1.7-8.2); BASOPHILS % (AUTO) 0.1 % (0-2); EOSINOPHILS % (AUTO) 0.9 % (0-6); HEMATOCRIT 26.7 % (36.0-47.0); HEMOGLOBIN 9.1 g/dL (12.0-15.5); LYMPHOCYTES % (AUTO) 8.6 % (13-45); MEAN CORPUSCULAR HEMOGLOBIN 29.4 pg (27.0-33.4); MEAN CORPUSCULAR HGB CONC 34.1 g/dL (32.0-36.0); MEAN CORPUSCULAR VOLUME 86 fl (80-97); PLATELET COUNT 445 10^3/uL (150-450); RED CELL DISTRIBUTION WIDTH 15.2 % (11.5-14.0); SEGMENTED NEUTROPHILS % (AUTO) 82.4 % (42-78); TOTAL CELLS COUNTED % (AUTO) 100 %; WHITE BLOOD COUNT 9.6 10^3/uL (4.0-10.5)
[2020-06-11 06:38] LABS: ALBUMIN 2.7 g/dL (3.5-5.0); ALKALINE PHOSPHATASE 112 U/L (38-126); ANION GAP 12 (5-19); ASPARTATE AMINO TRANSFERASE 32 U/L (14-36); BILIRUBIN,DIRECT 0.4 mg/dL (0.0-0.4); BILIRUBIN,TOTAL 0.6 mg/dL (0.2-1.3); BLOOD UREA NITROGEN 17 mg/dL (7-20); CALCIUM 8.1 mg/dL (8.4-10.2); CARBON DIOXIDE 19 mmol/L (22-30); CHLORIDE 105 mmol/L (98-107); GLUCOSE 84 mg/dL (75-110); POTASSIUM 4.5 mmol/L (3.6-5.0); TOTAL PROTEIN 5.8 g/dL (6.3-8.2)
[2020-06-11] MEDS: ENOXAPARIN SODIUM INJ 40 MG/0.4 ML DISP.SYRIN SUBCUT SCH (09:50)
[2020-06-11] MEDS: FAMOTIDINE INJ/PF 20 MG/2 ML SDV IV SCH ×2 (09:50→21:22)
--- NOTE | 2020-06-11 12:01 | PDOC PROGRESS REPORT ---
Subjective Progress Note for:: 06/11/20 Reason For Visit: SMALL BOWEL OBSTRUCTION Physical Exam Vital Signs: Temp Pulse Resp BP Pulse Ox 98.1 F 97 17 119/67 99 06/11/20 07:55 06/11/20 07:55 06/11/20 07:55 06/11/20 07:55 06/11/20 07:55 Intake & Output 06/10/20 06/11/20 06/12/20 06:59 06:59 06:59 Intake Total 2210 1008 Output Total 650 475 Balance 1560 533 Weight 86.4 kg 87.3 kg Results Laboratory Results: 06/11/20 06:11 06/11/20 06:11 06/11/20 06/11/20 06:11 06:11 WBC 9.6 RBC 3.10 L Hgb 9.1 L Hct 26.7 L MCV 86 MCH 29.4 MCHC 34.1 RDW 15.2 H Plt Count 445 Seg Neutrophils % 82.4 H Sodium 135.9 L Potassium 4.5 Chloride 105 Carbon Dioxide 19 L Anion Gap 12 BUN 17 Creatinine 0.72 Est GFR ( Amer) > 60 Glucose 84 Calcium 8.1 L Total Bilirubin 0.6 AST 32 Alkaline Phosphatase 112 Total Protein 5.8 L Albumin 2.7 L 06/03/20 06/03/20 21:39 21:39 Creatine Kinase 60 Troponin I < 0.012 Impressions: Abdomen/Pelvis CT 06/03/20 00:00 IMPRESSION: 1. Significantly dilated loops of small bowel throughout the abdomen with transition transition point immediately proximal to the enterocolic anastomosis in the right upper abdomen. The colon is decompressed. Findings suggest high-grade small bowel obstruction. 2. Small amount of free fluid in abdomen. 3. Mild bibasilar atelectasis and small left pleural effusion. 4. No pulmonary embolus. This exam was performed according to our departmental dose-optimization program, which includes automated exposure control, adjustment of the mA and/or kV according to patient size and/or use of iterative reconstruction technique. Chest X-Ray 06/03/20 20:57 IMPRESSION: 1. Mild bibasilar opacities likely representing atelectasis and trace pleural effusions. 2. Multiple air-fluid levels with dilated loops of small bowel that could represent postoperative ileus but if the patient's surgery was almost 2 weeks ago then this is more suggestive of developing obstruction. Would recommend clinical correlation and consider follow-up CT of the abdomen and pelvis to better evaluate. Chest/Abdomen CTA 06/03/20 23:45 IMPRESSION: 1. Significantly dilated loops of small bowel throughout the abdomen with transition transition point immediately proximal to the enterocolic anastomosis in the right upper abdomen. The colon is decompressed. Findings suggest high-grade small bowel obstruction. 2. Small amount of free fluid in abdomen. 3. Mild bibasilar atelectasis and small left pleural effusion. 4. No pulmonary embolus. This exam was performed according to our departmental dose-optimization program, which includes automated exposure control, adjustment of the mA and/or kV according to patient size and/or use of iterative reconstruction technique. KUB X-Ray 06/10/20 00:00 IMPRESSION: Probable resolving ileus Assessment & Plan - Diagnosis (1) Small bowel obstruction due to postoperative adhesions Is this a current diagnosis for this admission?: Yes - Time Anticipated Discharge Disposition: Home with Home Health Anticipated Discharge Timeframe: unknown at this time - Plan Summary Plan Summary: 44-year-old female status post exploratory laparotomy for bowel obstruction. Her anastomosis was revised. She again reports some vomiting last night, but she continues to have bowel movements and flatus. No nausea today. She is urinating without difficulty. Labs much improved. Ambulate in the hallways. Aggressive pulmonary toilet. Cont full liquids. Cont damp to dry dressing changes to midline wound.
[2020-06-11] MEDS ORDERED: LIDOCAINE 5% (700 MG) TRANSDERMAL ADH..PATCH ONE (19:03)
[2020-06-11] MEDS ORDERED: MORPHINE SULFATE 10 MG/ML INJ IV PRN (20:42)
[2020-06-11] MEDS: ONDANSETRON HCL INJ/PF 4 MG/2 ML SDV IV PRN (21:21)
[2020-06-12] MEDS: KETOROLAC TROMETHAMINE INJ/PF 30 MG/1 ML SDV IV SCH ×2 (01:57→09:06)
[2020-06-12 05:38] LABS: ABSOLUTE EOSINOPHILS # (AUTO) 0.1 10^3/uL (0.0-0.6); ABSOLUTE LYMPHOCYTES (AUTO) 0.9 10^3/uL (0.5-4.7); ABSOLUTE MONOCYTES (AUTO) 0.8 10^3/uL (0.1-1.4); ABSOLUTE NEUT (AUTO) 6.9 10^3/uL (1.7-8.2); BASOPHILS % (AUTO) 0.3 % (0-2); EOSINOPHILS % (AUTO) 1.4 % (0-6); HEMATOCRIT 25.7 % (36.0-47.0); HEMOGLOBIN 8.8 g/dL (12.0-15.5); LYMPHOCYTES % (AUTO) 10.7 % (13-45); MEAN CORPUSCULAR HEMOGLOBIN 29.6 pg (27.0-33.4); MEAN CORPUSCULAR HGB CONC 34.3 g/dL (32.0-36.0); MEAN CORPUSCULAR VOLUME 86 fl (80-97); MONOCYTES % (AUTO) 9.1 % (3-13); PLATELET COUNT 463 10^3/uL (150-450); RED BLOOD COUNT 2.98 10^6/uL (3.72-5.28); RED CELL DISTRIBUTION WIDTH 15.6 % (11.5-14.0); SEGMENTED NEUTROPHILS % (AUTO) 78.5 % (42-78); TOTAL CELLS COUNTED % (AUTO) 100 %; WHITE BLOOD COUNT 8.8 10^3/uL (4.0-10.5)
[2020-06-12 06:02] LABS: ALBUMIN 2.7 g/dL (3.5-5.0); ALKALINE PHOSPHATASE 105 U/L (38-126); ANION GAP 12 (5-19); ASPARTATE AMINO TRANSFERASE 35 U/L (14-36); BILIRUBIN,DIRECT 0.4 mg/dL (0.0-0.4); BILIRUBIN,TOTAL 0.6 mg/dL (0.2-1.3); BLOOD UREA NITROGEN 17 mg/dL (7-20); CALCIUM 7.9 mg/dL (8.4-10.2); CARBON DIOXIDE 17 mmol/L (22-30); CHLORIDE 105 mmol/L (98-107); GLUCOSE 84 mg/dL (75-110); POTASSIUM 4.3 mmol/L (3.6-5.0); TOTAL PROTEIN 5.9 g/dL (6.3-8.2)
[2020-06-12] MEDS: FAMOTIDINE INJ/PF 20 MG/2 ML SDV IV SCH ×2 (09:05→22:08)
[2020-06-12] MEDS: LIDOCAINE 5% (700 MG) TRANSDERMAL ADH..PATCH TP SCH (09:06)
[2020-06-12] MEDS: ENOXAPARIN SODIUM INJ 40 MG/0.4 ML DISP.SYRIN SUBCUT SCH (09:06)
[2020-06-12] MEDS ORDERED: OXYCODONE-ACETAMINOPHEN 5-325 MG TABLET PO PRN (09:39)
[2020-06-12] MEDS ORDERED: DOCUSATE SODIUM 100 MG CAPSULE PO SCH (10:00)
--- NOTE | 2020-06-12 13:54 | PDOC PROGRESS REPORT ---
Subjective Progress Note for:: 06/12/20 Reason For Visit: SMALL BOWEL OBSTRUCTION Physical Exam Vital Signs: Temp Pulse Resp BP Pulse Ox 98.6 F 95 15 117/73 98 06/12/20 12:03 06/12/20 12:03 06/12/20 12:03 06/12/20 12:03 06/12/20 12:03 Intake & Output 06/11/20 06/12/20 06/13/20 06:59 06:59 06:59 Intake Total 1008 740 120 Output Total 475 350 300 Balance 533 390 -180 Weight 87.3 kg 87 kg Results Laboratory Results: 06/12/20 05:20 06/12/20 05:20 06/12/20 06/12/20 05:20 05:20 WBC 8.8 RBC 2.98 L Hgb 8.8 L Hct 25.7 L MCV 86 MCH 29.6 MCHC 34.3 RDW 15.6 H Plt Count 463 H Seg Neutrophils % 78.5 H Sodium 134.4 L Potassium 4.3 Chloride 105 Carbon Dioxide 17 L Anion Gap 12 BUN 17 Creatinine 0.69 Est GFR ( Amer) > 60 Glucose 84 Calcium 7.9 L Total Bilirubin 0.6 AST 35 Alkaline Phosphatase 105 Total Protein 5.9 L Albumin 2.7 L 06/03/20 06/03/20 21:39 21:39 Creatine Kinase 60 Troponin I < 0.012 Impressions: Abdomen/Pelvis CT 06/03/20 00:00 IMPRESSION: 1. Significantly dilated loops of small bowel throughout the abdomen with transition transition point immediately proximal to the enterocolic anastomosis in the right upper abdomen. The colon is decompressed. Findings suggest high-grade small bowel obstruction. 2. Small amount of free fluid in abdomen. 3. Mild bibasilar atelectasis and small left pleural effusion. 4. No pulmonary embolus. This exam was performed according to our departmental dose-optimization program, which includes automated exposure control, adjustment of the mA and/or kV according to patient size and/or use of iterative reconstruction technique. Chest X-Ray 06/03/20 20:57 IMPRESSION: 1. Mild bibasilar opacities likely representing atelectasis and trace pleural effusions. 2. Multiple air-fluid levels with dilated loops of small bowel that could represent postoperative ileus but if the patient's surgery was almost 2 weeks ago then this is more suggestive of developing obstruction. Would recommend clinical correlation and consider follow-up CT of the abdomen and pelvis to better evaluate. Chest/Abdomen CTA 06/03/20 23:45 IMPRESSION: 1. Significantly dilated loops of small bowel throughout the abdomen with transition transition point immediately proximal to the enterocolic anastomosis in the right upper abdomen. The colon is decompressed. Findings suggest high-grade small bowel obstruction. 2. Small amount of free fluid in abdomen. 3. Mild bibasilar atelectasis and small left pleural effusion. 4. No pulmonary embolus. This exam was performed according to our departmental dose-optimization program, which includes automated exposure control, adjustment of the mA and/or kV according to patient size and/or use of iterative reconstruction technique. KUB X-Ray 06/10/20 00:00 IMPRESSION: Probable resolving ileus Assessment & Plan - Diagnosis (1) Small bowel obstruction due to postoperative adhesions Is this a current diagnosis for this admission?: Yes - Time Anticipated Discharge Disposition: Home with Home Health Anticipated Discharge Timeframe: within 48 hours - Plan Summary Plan Summary: 44-year-old female status post exploratory laparotomy for bowel obstruction. Her anastomosis was revised. She denies any vomiting last night, and she continues to have bowel movements and flatus. No nausea today. She is urinating without difficulty. Labs essentialy normal. Ambulate in the hallways. Aggressive pulmonary toilet. Advance to regular diet. Add oral pain meds. Resume home medications. Cont damp to dry dressing changes to midline wound.
[2020-06-12] MEDS: TRAMADOL HCL 50 MG TABLET PO PRN ×2 (17:10→22:08)
[2020-06-12] MEDS: IBUPROFEN 800 MG TABLET PO SCH (17:21)
[2020-06-12] MEDS: TRAZODONE HCL 50 MG TABLET PO PRN (22:07)
[2020-06-12] MEDS: GABAPENTIN 300 MG CAPSULE PO SCH (22:12)
[2020-06-12] MEDS: ONDANSETRON HCL INJ/PF 4 MG/2 ML SDV IV PRN (22:18)
[2020-06-13] MEDS: TRAMADOL HCL 50 MG TABLET PO PRN ×3 (03:21→22:31)
[2020-06-13] MEDS: IBUPROFEN 800 MG TABLET PO SCH ×3 (08:00→17:00)
[2020-06-13] MEDS: FAMOTIDINE INJ/PF 20 MG/2 ML SDV IV SCH ×2 (10:38→22:29)
[2020-06-13] MEDS: DULOXETINE HCL 30 MG CAPSULE.DR PO SCH (10:38)
[2020-06-13] MEDS: ENOXAPARIN SODIUM INJ 40 MG/0.4 ML DISP.SYRIN SUBCUT SCH (10:41)
--- NOTE | 2020-06-13 11:34 | PDOC PROGRESS REPORT ---
Subjective Progress Note for:: 06/13/20 Reason For Visit: SMALL BOWEL OBSTRUCTION Physical Exam Vital Signs: Temp Pulse Resp BP Pulse Ox 97.7 F 93 17 111/68 98 06/13/20 07:54 06/13/20 07:54 06/13/20 07:54 06/13/20 07:54 06/13/20 07:54 Intake & Output 06/12/20 06/13/20 06/14/20 06:59 06:59 06:59 Intake Total 740 480 Output Total 350 600 Balance 390 -120 Weight 87 kg 87 kg Results Laboratory Results: 06/12/20 05:20 06/12/20 05:20 06/03/20 06/03/20 21:39 21:39 Creatine Kinase 60 Troponin I < 0.012 Impressions: Abdomen/Pelvis CT 06/03/20 00:00 IMPRESSION: 1. Significantly dilated loops of small bowel throughout the abdomen with transition transition point immediately proximal to the enterocolic anastomosis in the right upper abdomen. The colon is decompressed. Findings suggest high-grade small bowel obstruction. 2. Small amount of free fluid in abdomen. 3. Mild bibasilar atelectasis and small left pleural effusion. 4. No pulmonary embolus. This exam was performed according to our departmental dose-optimization program, which includes automated exposure control, adjustment of the mA and/or kV according to patient size and/or use of iterative reconstruction technique. Chest X-Ray 06/03/20 20:57 IMPRESSION: 1. Mild bibasilar opacities likely representing atelectasis and trace pleural effusions. 2. Multiple air-fluid levels with dilated loops of small bowel that could represent postoperative ileus but if the patient's surgery was almost 2 weeks ago then this is more suggestive of developing obstruction. Would recommend clinical correlation and consider follow-up CT of the abdomen and pelvis to better evaluate. Chest/Abdomen CTA 06/03/20 23:45 IMPRESSION: 1. Significantly dilated loops of small bowel throughout the abdomen with transition transition point immediately proximal to the enterocolic anastomosis in the right upper abdomen. The colon is decompressed. Findings suggest high-grade small bowel obstruction. 2. Small amount of free fluid in abdomen. 3. Mild bibasilar atelectasis and small left pleural effusion. 4. No pulmonary embolus. This exam was performed according to our departmental dose-optimization program, which includes automated exposure control, adjustment of the mA and/or kV according to patient size and/or use of iterative reconstruction technique. KUB X-Ray 06/10/20 00:00 IMPRESSION: Probable resolving ileus Assessment & Plan - Diagnosis (1) Small bowel obstruction due to postoperative adhesions Is this a current diagnosis for this admission?: Yes - Time Anticipated Discharge Disposition: Home with Home Health Anticipated Discharge Timeframe: within 24 hours - Plan Summary Plan Summary: 44-year-old female status post exploratory laparotomy for bowel obstruction. Her anastomosis was revised. She denies any vomiting last night, and she continues to have bowel movements and flatus. Tolerating regular diet. No nausea today. She is urinating without difficulty. Ambulate in the hallways. Aggressive pulmonary toilet. Cont regular diet. Add oral pain meds. Resume home medications. Worsening purulence of midline wound. More mike removed. Start Abx. Cont damp to dry dressing changes.
[2020-06-13] MEDS: ONDANSETRON HCL INJ/PF 4 MG/2 ML SDV IV PRN ×2 (16:53→22:30)
[2020-06-13] MEDS: METRONIDAZOLE 500 MG/NS RTU 500 MG/100 ML RTUPB IV SCH ×2 (16:56→22:30)
[2020-06-13] MEDS: LEVOFLOXACIN 500 MG/D5W RTU 500 MG/100 ML RTUPB IV SCH (16:57)
[2020-06-13] MEDS: GABAPENTIN 300 MG CAPSULE PO SCH (22:23)
[2020-06-13] MEDS: TRAZODONE HCL 50 MG TABLET PO PRN (22:31)
[2020-06-14] MEDS: METRONIDAZOLE 500 MG/NS RTU 500 MG/100 ML RTUPB IV SCH ×3 (00:02→12:20)
[2020-06-14] MEDS: TRAMADOL HCL 50 MG TABLET PO PRN (02:48)
[2020-06-14] MEDS: ONDANSETRON HCL INJ/PF 4 MG/2 ML SDV IV PRN ×2 (02:48→11:15)
[2020-06-14] MEDS: LIDOCAINE 5% (700 MG) TRANSDERMAL ADH..PATCH TP SCH ×2 (08:13→09:50)
[2020-06-14] MEDS: IBUPROFEN 800 MG TABLET PO SCH ×2 (09:50→12:20)
[2020-06-14] MEDS: ENOXAPARIN SODIUM INJ 40 MG/0.4 ML DISP.SYRIN SUBCUT SCH (09:51)
[2020-06-14] MEDS: LEVOFLOXACIN 500 MG/D5W RTU 500 MG/100 ML RTUPB IV SCH (09:51)
[2020-06-14] MEDS: FAMOTIDINE INJ/PF 20 MG/2 ML SDV IV SCH (09:51)
[2020-06-14] MEDS: DULOXETINE HCL 30 MG CAPSULE.DR PO SCH (09:51)
--- NOTE | 2020-06-14 15:28 | PDOC DISCHARGE SUMMARY ---
General - Admit/Disc Date/PCP Admission Date/Primary Care Provider: 06/04/20 03:55 HU ALVARES MD Discharge Date: 06/14/20 - Discharge Diagnosis Final Diagnosis: Internal hernia causing a small bowel obstruction - Assessment Summary: 44-year-old female who is status post right hemicolectomy. 2 weeks after surgery, she developed nausea, vomiting, and abdominal distention. She was found to have a small bowel obstruction. She was admitted to hospital. Her symptoms did not subside with NG decompression. She was then taken to the operating room and explored. An internal hernia was found at the mesenteric defect. Her anastomosis was revised, and the mesenteric defect was closed. The patient was taken to the floor in stable condition. She developed an ileus after surgery, and required several days for her bowel function to return. By 06/14/2020, she is ambulating, tolerating a diet, passing flatus, and is doing very well. She did develop a surgical site infection, requiring opening of the wound, damp to dry dressing changes, and antibiotics. The patient will be discharged home on oral antibiotics. Home health is arranged for dressing changes. At this time she is medically fit for discharge. - Additional Information Resuscitation Status: Full Code Discharge Diet: As Tolerated Discharge Activity: No Lifting Over 10 Pounds, No Lifting/Push/Pulling Referrals: [facility] ALVARES MD [Primary Care Provider] - Follow up as needed Prescriptions: Metronidazole [Flagyl 500 mg Tablet] 500 mg PO TID #21 tablet Levofloxacin [Levaquin 500 mg Tablet] 500 mg PO DAILY #7 tablet Tramadol HCl [Ultram 50 mg Tablet] 50 mg PO Q4HP PRN #20 tab PRN Reason: For Pain Home Medications: Duloxetine HCl [Cymbalta 30 mg Capsule.dr] 30 mg PO DAILY 06/05/20 Amitriptyline HCl [Elavil 25 mg Tablet] 25 mg PO DAILY 06/12/20 Cyclobenzaprine HCl [Flexeril 10 mg Tablet] 10 mg PO QHS PRN 06/12/20 Diazepam [Valium] 5 mg PO DAILYP PRN 06/12/20 Ferrous Sulfate 324mg 324 mg PO BID 06/12/20 Gabapentin [Neurontin 300 mg Capsule] 300 mg PO QHS 06/12/20 Ondansetron HCl [Zofran] 4 mg PO Q6HP PRN 06/12/20 Trazodone HCl [Desyrel 50 mg Tablet] 50 mg PO HSP PRN 06/12/20 Levofloxacin [Levaquin 500 mg Tablet] 500 mg PO DAILY #7 tablet 06/14/20 Metronidazole [Flagyl 500 mg Tablet] 500 mg PO TID #21 tablet 06/14/20 Tramadol HCl [Ultram 50 mg Tablet] 50 mg PO Q4HP PRN #20 tab 06/14/20 History of Present Illiness History of Present Illness: HECTOR BAXTER is a 44 year old female who is approximately 2 weeks status post laparoscopic right hemicolectomy. At home, she has been tolerating a soft mechanical diet. Yesterday, she began to feel bloated and nauseated. There was no inciting event. Yesterday she had 2 small liquid bowel movements. After the bloating and nausea started, they progressed and worsened. She then began to experience obstipation, nausea, and vomiting. She presented to the emergency department, where a CT scan was ordered. She denies significant abdominal discomfort, fevers, chills, hematochezia, hematemesis, chest pain, shortness of breath. She has been somewhat weak since surgery, but denies orthostasis or fainting. Physical Exam Vital Signs: Temp Pulse Resp BP Pulse Ox 97.7 F 101 H 16 106/62 98 06/14/20 12:05 06/14/20 12:05 06/14/20 12:05 06/14/20 12:05 06/14/20 12:05 Intake & Output 06/13/20 06/14/20 06/15/20 06:59 06:59 06:59 Intake Total 480 880 680 Output Total 600 700 300 Balance -120 180 380 Weight 87 kg 79.5 kg Results Laboratory Results: WBC 8.8 10^3/uL (4.0-10.5) 06/12/20 05:20 RBC 2.98 10^6/uL (3.72-5.28) L 06/12/20 05:20 Hgb 8.8 g/dL (12.0-15.5) L 06/12/20 05:20 Hct 25.7 % (36.0-47.0) L 06/12/20 05:20 MCV 86 fl (80-97) 06/12/20 05:20 MCH 29.6 pg (27.0-33.4) 06/12/20 05:20 MCHC 34.3 g/dL (32.0-36.0) 06/12/20 05:20 RDW 15.6 % (11.5-14.0) H 06/12/20 05:20 Plt Count 463 10^3/uL (150-450) H 06/12/20 05:20 Lymph % (Auto) 10.7 % (13-45) L 06/12/20 05:20 Hale % (Auto) 9.1 % (3-13) 06/12/20 05:20 Eos % (Auto) 1.4 % (0-6) 06/12/20 05:20 Baso % (Auto) 0.3 % (0-2) 06/12/20 05:20 Absolute Neuts (auto) 6.9 10^3/uL (1.7-8.2) 06/12/20 05:20 Absolute Lymphs (auto) 0.9 10^3/uL (0.5-4.7) 06/12/20 05:20 Absolute Monos (auto) 0.8 10^3/uL (0.1-1.4) 06/12/20 05:20 Absolute Eos (auto) 0.1 10^3/uL (0.0-0.6) 06/12/20 05:20 Absolute Basos (auto) 0.0 10^3/uL (0.0-0.2) 06/12/20 05:20 Total Counted 100 06/09/20 04:15 Seg Neutrophils % 78.5 % (42-78) H 06/12/20 05:20 Seg Neuts % (Manual) 96 % (42-78) H 06/09/20 04:15 Band Neutrophils % 1 % (3-5) L 06/07/20 09:20 Lymphocytes % (Manual) 4 % (13-45) L 06/09/20 04:15 Monocytes % (Manual) 0 % (3-13) L 06/09/20 04:15 Eosinophils % (Manual) 0 % (0-6) 06/09/20 04:15 Basophils % (Manual) 0 % (0-2) 06/09/20 04:15 Metamyelocytes % 1 % (0-1) 06/03/20 22:20 Abs Neuts (Manual) 20.7 10^3/uL (1.7-8.2) H 06/09/20 04:15 Abs Lymphs (Manual) 0.9 10^3/uL (0.5-4.7) 06/09/20 04:15 Abs Monocytes (Manual) 0.0 10^3/uL (0.1-1.4) L 06/09/20 04:15 Absolute Eos (Manual) 0.0 10^3/uL (0.0-0.6) 06/09/20 04:15 Abs Basophils (Manual) 0.0 10^3/uL (0.0-0.2) 06/09/20 04:15 Toxic Granulation SLIGHT 06/09/20 04:15 Platelet Estimate Cancelled 06/03/20 21:39 Clumped Platelets PRESENT 06/09/20 04:15 Large Platelets PRESENT 06/07/20 09:20 Platelet Comment ADEQUATE 06/09/20 04:15 Poikilocytosis 1+ 06/08/20 06:09 Anisocytosis SLIGHT 06/09/20 04:15 Tear Drop Cells SLIGHT 06/09/20 04:15 Ovalocytes 1+ 06/08/20 06:09 Schistocytes SLIGHT 06/09/20 04:15 RBC Morph Comment NORMO-CYTIC/CHROMIC 06/09/20 04:15 Sodium 134.4 mmol/L (137-145) L 06/12/20 05:20 Potassium 4.3 mmol/L (3.6-5.0) 06/12/20 05:20 Chloride 105 mmol/L (98-107) 06/12/20 05:20 Carbon Dioxide 17 mmol/L (22-30) L 06/12/20 05:20 Anion Gap 12 (5-19) 06/12/20 05:20 BUN 17 mg/dL (7-20) 06/12/20 05:20 Creatinine 0.69 mg/dL (0.52-1.25) 06/12/20 05:20 Est GFR ( Amer) > 60 (>60) 06/12/20 05:20 Est GFR (MDRD) Non-Af > 60 (>60) 06/12/20 05:20 Glucose 84 mg/dL (75-110) 06/12/20 05:20 POC Glucose 95 mg/dL (70-110) 06/10/20 09:35 Calcium 7.9 mg/dL (8.4-10.2) L 06/12/20 05:20 Magnesium 2.0 mg/dL (1.6-2.3) 06/03/20 21:39 Total Bilirubin 0.6 mg/dL (0.2-1.3) 06/12/20 05:20 Direct Bilirubin 0.4 mg/dL (0.0-0.4) 06/12/20 05:20 Neonat Total Bilirubin Not Reportable 06/12/20 05:20 Neonat Direct Bilirubin Not Reportable 06/12/20 05:20 Neonat Indirect Bili Not Reportable 06/12/20 05:20 AST 35 U/L (14-36) 06/12/20 05:20 ALT 20 U/L (<35) 06/12/20 05:20 Alkaline Phosphatase 105 U/L (38-126) 06/12/20 05:20 Creatine Kinase 60 U/L (30-135) 06/03/20 21:39 Troponin I < 0.012 ng/mL 06/03/20 21:39 Total Protein 5.9 g/dL (6.3-8.2) L 06/12/20 05:20 Albumin 2.7 g/dL (3.5-5.0) L 06/12/20 05:20 Lipase 467.3 U/L (23-300) H 06/03/20 21:39 SARS-CoV-2 (PCR) NEGATIVE (NEGATIVE) 06/06/20 09:47 Slides for Path Review Cancelled 06/03/20 21:39 06/03/20 21:39 Troponin I < 0.012 Impressions: Abdomen/Pelvis CT 06/03/20 00:00 IMPRESSION: 1. Significantly dilated loops of small bowel throughout the abdomen with transition transition point immediately proximal to the enterocolic anastomosis in the right upper abdomen. The colon is decompressed. Findings suggest high-grade small bowel obstruction. 2. Small amount of free fluid in abdomen. 3. Mild bibasilar atelectasis and small left pleural effusion. 4. No pulmonary embolus. This exam was performed according to our departmental dose-optimization program, which includes automated exposure control, adjustment of the mA and/or kV according to patient size and/or use of iterative reconstruction technique. Chest X-Ray 06/03/20 20:57 IMPRESSION: 1. Mild bibasilar opacities likely representing atelectasis and trace pleural effusions. 2. Multiple air-fluid levels with dilated loops of small bowel that could represent postoperative ileus but if the patient's surgery was almost 2 weeks ago then this is more suggestive of developing obstruction. Would recommend clinical correlation and consider follow-up CT of the abdomen and pelvis to better evaluate. Chest/Abdomen CTA 06/03/20 23:45 IMPRESSION: 1. Significantly dilated loops of small bowel throughout the abdomen with transition transition point immediately proximal to the enterocolic anastomosis in the right upper abdomen. The colon is decompressed. Findings suggest high-grade small bowel obstruction. 2. Small amount of free fluid in abdomen. 3. Mild bibasilar atelectasis and small left pleural effusion. 4. No pulmonary embolus. This exam was performed according to our departmental dose-optimization program, which includes automated exposure control, adjustment of the mA and/or kV according to patient size and/or use of iterative reconstruction technique. KUB X-Ray 06/04/20 03:08 IMPRESSION: NG tube tip in the stomach. KUB X-Ray 06/05/20 06:00 IMPRESSION: NO CHANGE IN SMALL BOWEL DILATION. KUB X-Ray 06/06/20 06:00 IMPRESSION: Persistent diffuse small bowel dilation within the central left hemiabdomen, similar to prior and compatible with obstruction. Nasoenteric tube tip overlies gastric fundus. KUB X-Ray 06/10/20 00:00 IMPRESSION: Probable resolving ileus
[2020-06-14 16:29] VITALS: BP 111/62
== END 2020-06-14 16:30 | disposition home health service (06) | DRG 330 ==
LOC: ER 20:29 → OBSVTOIN 06-04 03:55 → EH 06-04 03:55 → 5 06-04 05:44
PROVIDERS: ADMIT Surgery; ATTEND Surgery
PROC: 3E02340 Introduction of Influenza Vaccine into Muscle, Percutaneous Approach (ICD-10-PCS; 2020-06-05)
PROC: 0DQV0ZZ Repair Mesentery, Open Approach (ICD-10-PCS; 2020-06-06)
PROC: 0DB80ZZ Excision of Small Intestine, Open Approach (ICD-10-PCS; 2020-06-06)
PROC: 0DBM0ZZ Excision of Descending Colon, Open Approach (ICD-10-PCS; principal; 2020-06-06 17:00)
DX: K91.89 Other postprocedural complications and disorders of digestive system (principal); K46.0 Unspecified abdominal hernia with obstruction, without gangrene; C18.2 Malignant neoplasm of ascending colon; K21.9 Gastro-esophageal reflux disease without esophagitis; Z20.828 Contact with and (suspected) exposure to other viral communicable diseases; Z23 Encounter for immunization; Z90.49 Acquired absence of other specified parts of digestive tract
CPT/HCPCS: 36415; 71046; 71275; 74018; 74177; 790; 80048; 80053; 82550; 82962; 83690; 83735; 84484; 85025; 87635; 88307; 90471; 90686; 93005; 93010; 94799; 96361; 96374; 96375; 96376; 99140; 99285; C1758; C9803; G0008; G0378; J0131; J0330; J0694; J1100; J1650; J1885; J1956; J2250; J2270; J2370; J2405; J2704; J2710; J3010; J3480; J3490; J7030; J7060; J7121; S0028; S0119